=== PATIENT | female | born 1980 | race Caucasian/White ===

== ENCOUNTER 2016-08-24 20:46 | Emergency (ER) | payer MEDICAID ==
[2016-08-24 21:07] VITALS: BP 116/72
--- NOTE | 2016-08-24 21:20 | EDM.PDOC ---
ED HPI ENT - General Chief Complaint: ENT Problem Stated Complaint: TOOTH PAIN Time Seen by Provider: 08/24/16 21:02 Source: Reports: Patient History Limitations: Reports: No limitations - History of Present Illness INITIAL COMMENTS - FREE TEXT/NARRATIVE: dental pain -reports filling fell out of upper molar about one week ago, now for the past two days having increased pain. now tonight the pain is unbearable. -also has other teeth with large cavities. -she plans to go to the Dental Clinic on Friday. Symptom Onset Date: 08/22/16 Timing/Duration: Reports: Day(s): Severity: severe Quality: Reports: Sharp, Throbbing Improves with: Reports: None Worsens with: Reports: None Associated symptoms: Reports: denies other symptoms - Related Data Allergies/ADRs: Allergies Allergy/AdvReac Type Severity Reaction Status Date / Time aspirin Allergy Ringing in Verified 04/06/14 12:56 the Ears codeine Allergy Hives Verified 04/06/14 12:56 naproxen [From Naprosyn] Allergy Hives Verified 04/06/14 12:56 tramadol Allergy Headache Verified 05/21/15 10:16 Home Meds: Home Meds Omeprazole [Omeprazole] 20 mg PO DAILY 03/05/14 [History] Prazosin [Minpress] 4 mg PO BEDTIME 03/05/14 [History] clonazePAM [Clonazepam] 0.5 mg PO BID 07/30/15 [History] Ibuprofen 800 mg PO TID 11/02/15 [History] Mometasone Furoate [Nasonex] 1 spray NASBOTH DAILY 11/02/15 [History] Gabapentin [Gabapentin] 1 tab PO TID 01/06/16 [History] Baclofen [Baclofen] 08/24/16 [History] Cyclobenzaprine HCl [Cyclobenzaprine HCl] 08/24/16 [History] Venlafaxine [Venlafaxine HCl ER] 08/24/16 [History] Past Medical History - Past Health History Medical/Surgical History: Denies Medical/Surgical History Musculoskeletal History: Reports: Fracture Psychiatric History: Reports: Anxiety, Depression, PTSD Dermatologic History: Reports: Eczema - Infectious Disease History Infectious Disease History: Reports: Chicken pox - Past Surgical History Female Surgical History: Reports: Tubal ligation Social & Family History - Tobacco Use Smoking Status *Q: Current Every Day Smoker Years of Tobacco use: 26 Packs/Tins Daily: 1 - Alcohol Use Days Per Week of Alcohol Use: 0 - Recreational Drug Use Recreational Drug Use: Yes Drug Use in Last 12 Months: Yes Recreational Drug Type: Reports: Marijuana/Hashish Recreational Drug Use Frequency: Not Used In Over 2 Months - Living Situation & Occupation Living situation: Reports: with family (lives in [place] with her three children.) ED ROS ENT - Review of Systems Review Of Systems: See Below HEENT: Reports: Dental pain, Ear pain (left) Respiratory: Reports: No Symptoms Cardiovascular: Reports: No symptoms GI/Abdominal: Reports: No symptoms Skin: Reports: no symptoms ED EXAM, ENT - Physical Exam Exam: See Below Exam Limited By: Other (crying during the whole exam. sobbing.) General Appearance: alert, WD/WN, moderate distress Ears: normal external exam, normal canal, hearing grossly normal, normal TMs Nose: normal inspection, normal mucousa, no blood Mouth/Throat: Dental pain, Dental tenderness, Other (teeth; 32, 30, 13 & 14 with large cavities into the root and gum line. pain and tenderness noted. ) Head: atraumatic, normocephalic Neck: normal inspection, supple, non-tender, full range of motion Respiratory/Chest: no respiratory distress Neurological: alert, oriented, normal cognition Psychiatric: tearful Skin: Warm, Dry, Intact, Normal color, No rash Lymphatic: no adenopathy Course - Vital Signs Last Recorded V/S: Last Vital Signs Temp 37.7 C 08/24/16 21:05 Pulse 99 08/24/16 21:05 Resp 15 08/24/16 21:05 BP 116/72 08/24/16 21:05 Pulse Ox 98 08/24/16 21:05 Departure - Departure Time of Disposition: 21:45 Disposition: Home, Self-Care 01 Condition: good Clinical Impression: Dental caries extending into dentin Instructions: Dental Caries, [id number] Referrals: Ana Bellamy NP [Primary Care Provider] - Forms: ED Department Discharge Care Plan Goals: dental pain -hydrocodone 5-325mg one every 4 to6 hours as needed for acute pain -may use over the counter; tylenol, motrin, oral gel for pain -referral to [facility] for care on FridayAugust 26 discussed medications, soft diet, no hot or cold foods, and plan to be seen by Dental Clinic on Friday return to clinic or er if not improved or symptoms worsen - Problem List & Annotations (1) Dental caries extending into dentin SNOMED Code(s): 657408808 Code(s): K02.62 - DENTAL CARIES ON SMOOTH SURFACE PENETRATING INTO DENTIN Status: Acute Priority: Medium Current Visit: Yes - Assessment/Plan Plan: dental pain -hydrocodone 5-325mg one every 4 to6 hours as needed for acute pain #6 tabs -may use over the counter; tylenol, motrin, oral gel for pain -referral to [facility] for care on FridayAugust 26 discussed medications, soft diet, no hot or cold foods, and plan to be seen by Dental Clinic on Friday return to clinic or er if not improved or symptoms worsen
== END 2016-08-24 22:23 | disposition home or self-care (01) ==
LOC: JP.ED 20:46
DX: K02.9 Dental caries, unspecified (principal); F41.8 Other specified anxiety disorders; Z79.899 Other long term (current) drug therapy; F17.210 Nicotine dependence, cigarettes, uncomplicated; Z88.5 Allergy status to narcotic agent; Z88.6 Allergy status to analgesic agent
CPT/HCPCS: 99283

== ENCOUNTER 2016-09-20 13:32 | Emergency (ER) | payer MEDICAID ==
[2016-09-20 13:57] VITALS: BP 129/77
[2016-09-20] MEDS ORDERED: Ketorolac 60 MG/2 ML SDV IM ONE (14:28)
--- NOTE | 2016-09-20 15:06 | EDM.PDOC ---
[id number] Time Seen by Provider: 09/20/16 14:05 Source: Reports: Patient History Limitations: Reports: No limitations - History of Present Illness INITIAL COMMENTS - FREE TEXT/NARRATIVE: 35-year-old female with chronic dental pain has an acute exacerbation over the last 2 or 3 days. She has an appointment coming up at the dental clinic in 10 days. She is tearful, so she is "unable to eat" and now she is developing some swelling around the left angle of the jaw. Severity: moderate Location: Reports: mouth Associated symptoms: Denies: shortness of breath, cough, fever/chills, loss of appetite, nausea/vomiting - Related Data Allergies/ADRs: Allergies Allergy/AdvReac Type Severity Reaction Status Date / Time aspirin Allergy Ringing in Verified 09/20/16 14:03 the Ears codeine Allergy Hives Verified 09/20/16 14:03 naproxen [From Naprosyn] Allergy Hives Verified 09/20/16 14:03 tramadol Allergy Headache Verified 09/20/16 14:03 Home Meds: Home Meds Omeprazole [Omeprazole] 20 mg PO DAILY 03/05/14 [History] Prazosin [Minpress] 4 mg PO BEDTIME 03/05/14 [History] Ibuprofen 800 mg PO TID 11/02/15 [History] Mometasone Furoate [Nasonex] 1 spray NASBOTH DAILY 11/02/15 [History] Gabapentin [Gabapentin] 1 tab PO TID 01/06/16 [History] Baclofen [Baclofen] 10 mg PO TID 08/24/16 [History] Cyclobenzaprine HCl [Cyclobenzaprine HCl] 10 mg PO TID 08/24/16 [History] Venlafaxine [Venlafaxine HCl ER] 150 mg PO DAILY 08/24/16 [History] ALPRAZolam [Xanax] 0.5 mg PO TID 09/20/16 [History] Baclofen 10 mg PO TID 09/20/16 [History] Past Medical History - Past Health History Medical/Surgical History: Denies Medical/Surgical History Musculoskeletal History: Reports: Back pain, chronic, Fracture Psychiatric History: Reports: Anxiety, Depression, PTSD Dermatologic History: Reports: Eczema - Infectious Disease History Infectious Disease History: Reports: Chicken pox - Past Surgical History HEENT Surgical History: Reports: Other (see below) Other HEENT Surgeries/Procedures: caries Female Surgical History: Reports: Tubal ligation Social & Family History - Tobacco Use Smoking Status *Q: Current Every Day Smoker Years of Tobacco use: 20 Packs/Tins Daily: 1 - Caffeine Use Caffeine Use: Reports: Coffee, Soda - Alcohol Use Days Per Week of Alcohol Use: 0 - Recreational Drug Use Recreational Drug Use: Yes Drug Use in Last 12 Months: Yes Recreational Drug Type: Reports: Marijuana/Hashish Recreational Drug Use Frequency: Daily - Living Situation & Occupation Living situation: Reports: with family (lives in [place] with her three children.) ED ROS ENT - Review of Systems Review Of Systems: See Below Constitutional: Denies: fever, chills HEENT: Reports: Dental pain Respiratory: Denies: Shortness of Breath Cardiovascular: Denies: Chest pain GI/Abdominal: Denies: Abdominal pain, Nausea, Vomiting ED EXAM, ENT - Physical Exam Exam: See Below Exam Limited By: No limitations General Appearance: alert, anxious, mild distress, other (Patient is tearful and obviously very uncomfortable) Mouth/Throat: Other (Patient has widespread very advanced dental decay, some discoloration of the gingiva around the left maxillary molars and also the lower mandibular incisors and canines) Course - Vital Signs Last Recorded V/S: Last Vital Signs Temp 99.5 F 09/20/16 14:08 Pulse 124 H 09/20/16 14:08 Resp 15 09/20/16 14:08 BP 129/77 09/20/16 14:08 Pulse Ox 96 09/20/16 14:08 - Orders/Labs/Meds Meds: Medications Discontinued Medications Generic Name Dose Route Start Last Admin Trade Name Yash PRN Reason Stop Dose Admin Ketorolac Tromethamine 60 mg 09/20/16 14:28 09/20/16 14:35 Toradol IM 09/20/16 14:29 60 mg ONETIME ONE Administration - Re-Assessments/Exams Free Text/Narrative Re-Assessment/Exam: 09/20/16 14:59 Patient was given an injection of Toradol and observed for 30 minutes, she had no reaction and it did provide some relief. She was given 40 penicillin VK to take at least 3 times a day until her dental recheck, 10 additional ketorolac doses and 10 hydrocodone to take through the weekend. Departure - Departure Time of Disposition: 15:19 Disposition: Home, Self-Care 01 Condition: good Clinical Impression: Dental caries extending into dentin, Pain in a tooth or teeth, Dental abscess Instructions: Dental Abscess, [id number], Dental Caries, [id number] Referrals: Ana Bellamy NP [Primary Care Provider] - Forms: ED Department Discharge Care Plan Goals: Take medications as prescribed. If not improving by early next week consider calling the dental clinic or return to ER to set up a referral.
== END 2016-09-20 15:13 | disposition home or self-care (01) ==
LOC: JP.ED 13:32
DX: K02.62 Dental caries on smooth surface penetrating into dentin (principal); K04.7 Periapical abscess without sinus; F17.210 Nicotine dependence, cigarettes, uncomplicated; G89.29 Other chronic pain; M54.9 Dorsalgia, unspecified; F43.10 Post-traumatic stress disorder, unspecified; Z79.899 Other long term (current) drug therapy; Z88.6 Allergy status to analgesic agent; Z88.8 Allergy status to other drugs, medicaments and biological substances
CPT/HCPCS: 96372; 99283; J1885

== ENCOUNTER 2016-10-08 18:03 | Emergency (ER) | payer MEDICAID ==
[2016-10-08 18:28] VITALS: BP 144/99
[2016-10-08] MEDS ORDERED: Bupivacaine 0.5%/EPINEPHrine 1:200,000 1.8 ML Cartridge INJECT ONE (19:11)
--- NOTE | 2016-10-08 19:16 | EDM.PDOC ---
ED HPI GENERAL MEDICAL PROBLEM - General Chief Complaint: ENT Problem Stated Complaint: LEFT JAW PAIN Time Seen by Provider: 10/08/16 18:55 Source of Information: Reports: Patient, RN Notes Reviewed History Limitations: Reports: No Limitations - History of Present Illness INITIAL COMMENTS - FREE TEXT/NARRATIVE: Drove self care Chief complaint: Left upper dental pain HPI: 36-year-old female who is on medical assistance, has been seen by her dentist and referred to a dental surgeon because of a bad cavity/dental caries left upper molar that needs to extraction. She has a dental surgical appointment for November. She has been taking hydrocodone and ibuprofen 800 mg for the pain and also has been prescribed clindamycin which apparently she's been prescribed up until the appointment in November. She's been unable to get renewals on hydrocodone by her dentist or her primary care provider. She denies any history of addiction drug use drug abuse or drug dependency She has been having dental pain for over a month Tooth/Teeth Pain Score (Numeric/FACES): 10 - Related Data Allergies Allergy/AdvReac Type Severity Reaction Status Date / Time aspirin Allergy Ringing in Verified 09/20/16 14:03 the Ears codeine Allergy Hives Verified 09/20/16 14:03 naproxen [From Naprosyn] Allergy Hives Verified 09/20/16 14:03 tramadol Allergy Headache Verified 09/20/16 14:03 Home Meds: Home Meds Omeprazole [Omeprazole] 20 mg PO DAILY 03/05/14 [History] Prazosin [Minpress] 4 mg PO BEDTIME 03/05/14 [History] Ibuprofen 800 mg PO TID 11/02/15 [History] Mometasone Furoate [Nasonex] 1 spray NASBOTH DAILY 11/02/15 [History] Gabapentin [Gabapentin] 1 tab PO TID 01/06/16 [History] Baclofen [Baclofen] 10 mg PO TID 08/24/16 [History] Cyclobenzaprine HCl [Cyclobenzaprine HCl] 10 mg PO TID 08/24/16 [History] Venlafaxine [Venlafaxine HCl ER] 150 mg PO DAILY 08/24/16 [History] ALPRAZolam [Xanax] 0.5 mg PO TID 09/20/16 [History] Baclofen 10 mg PO TID 09/20/16 [History] Hydrocodone/Acetaminophen [Hydrocodon-Acetaminophen 5-325] 2 each PO Q4HR PRN # 20 tablet 10/08/16 [Rx] Past Medical History - Past Health History Medical/Surgical History: Denies Medical/Surgical History Musculoskeletal History: Reports: Back Pain, Chronic, Fracture Psychiatric History: Reports: Anxiety, Depression, PTSD Dermatologic History: Reports: Eczema - Infectious Disease History Infectious Disease History: Reports: Chicken Pox - Past Surgical History HEENT Surgical History: Reports: Other (See Below) Other HEENT Surgeries/Procedures: decayed teeth Female Surgical History: Reports: Tubal Ligation Social & Family History - Tobacco Use Smoking Status *Q: Heavy Tobacco Smoker Years of Tobacco use: 20 Packs/Tins Daily: 1 - Caffeine Use Caffeine Use: Reports: Coffee, Soda - Alcohol Use Days Per Week of Alcohol Use: 0 - Recreational Drug Use Recreational Drug Use: Yes Drug Use in Last 12 Months: Yes Recreational Drug Type: Reports: Marijuana/Hashish Recreational Drug Use Frequency: Daily - Living Situation & Occupation Living situation: Reports: with Family ED ROS ENT - Review of Systems Review Of Systems: ROS reveals no pertinent complaints other than HPI. HEENT: Reports: Dental Pain ED EXAM, ENT - Physical Exam Exam: See Below Exam Limited By: No Limitations General Appearance: Anxious, Moderate Distress, Other (Vital signs normal apart from elevated systolic blood pressure, very tearful anxious and uncomfortable) Eye Exam: Bilateral Eye: Normal Inspection Nose: Normal Inspection Mouth/Throat: Dental Tenderness, Gum Swelling (Around the dental infection), Other (Large cavity of the entire left upper molar that is painful for her) Head: Atraumatic Neck: Supple. No: Lymphadenopathy (R), Lymphadenopathy (L) Respiratory/Chest: No Respiratory Distress Cardiovascular: Regular Rate, Rhythm Neurological: Alert, No Motor/Sensory Deficits Psychiatric: Anxious, Tearful Skin: Warm, Dry Lymphatic: No Adenopathy ED ENT PROCEDURES - Additional/Other Procedure(s) Other (Free Text) Procedure(s): Local dental block left upper alveolar ridge Bupivacaine 0.5% with epinephrine Well tolerated by patient with good relief Course - Vital Signs Last Recorded V/S: Last Vital Signs Temp 37.1 C 10/08/16 18:28 Pulse 73 10/08/16 18:28 Resp 16 10/08/16 18:28 BP 144/99 H 10/08/16 18:28 Pulse Ox 96 10/08/16 18:28 - Orders/Labs/Meds Meds: Medications Discontinued Medications Generic Name Dose Route Start Last Admin Trade Name Yash PRN Reason Stop Dose Admin Bupivacaine HCl/Epinephrine Bitart 1.8 ml 10/08/16 19:11 10/08/16 19:22 Marcaine 0.5%/Epinephrine 1:200,000 INJECT 10/08/16 19:12 1.8 ml ONETIME ONE Administration - Re-Assessments/Exams Free Text/Narrative Re-Assessment/Exam: 10/08/16 19:14 36-year-old female with acute dental pain, due to caries Accepted dental block Prescriptions as below Departure - Departure Time of Disposition: 19:26 Disposition: Home, Self-Care 01 Condition: good ( I) Clinical Impression: Dental caries - Discharge Information Prescriptions: Hydrocodone/Acetaminophen [Hydrocodon-Acetaminophen 5-325] 2 each PO Q4HR PRN # 20 tablet PRN Reason: Moderate to severe pain Instructions: Dental Caries Referrals: Ana Bellamy NP [Primary Care Provider] - Forms: ED Department Discharge
== END 2016-10-08 19:37 | disposition home or self-care (01) ==
LOC: JP.ED 18:03
DX: K02.9 Dental caries, unspecified (principal); F41.9 Anxiety disorder, unspecified; F32.9 Major depressive disorder, single episode, unspecified; Z98.51 Tubal ligation status; Z79.899 Other long term (current) drug therapy; Z88.5 Allergy status to narcotic agent; Z88.8 Allergy status to other drugs, medicaments and biological substances
CPT/HCPCS: 64450; 99283-25

== ENCOUNTER 2016-10-14 12:46 | Emergency (ER) | payer MEDICAID ==
[2016-10-14 13:03] VITALS: BP 118/86
[2016-10-14] MEDS ORDERED: Bupivacaine 0.25% 10 ML SDV INJECT ONE (13:47)
[2016-10-14] MEDS ORDERED: HYDROmorphone 1 MG/ML Syringe IM ONE (14:05)
--- NOTE | 2016-10-14 14:08 | EDM.PDOC ---
ED HPI GENERAL MEDICAL PROBLEM - General Chief Complaint: ENT Problem Stated Complaint: JAW PAIN Time Seen by Provider: 10/14/16 13:30 Source of Information: Reports: Patient History Limitations: Reports: No Limitations - History of Present Illness INITIAL COMMENTS - FREE TEXT/NARRATIVE: Yelena is a 36 year old female who presents to the ED today with c/o worsening left upper tooth/jaw pain. Patient has been seen here on the of this Month as well as primary dentistry earlier in the month for this problem. Patient is scheduled for tooth extraction with oral surgeon in November. Patient is currently taking Clindamycin for infection and took her last [place] for pain last night. Patient reports she took ibuprofen earlier to day for her pain which really isn't helping. Patient report she cannot open her mouth as much as she normally can today. Patient denies any fever/nausea/vomiting. Onset: Other (ongoing for the last 6 weeks. ) Duration: Getting Worse Left Face Pain Score (Numeric/FACES): 10 - Related Data Allergies Allergy/AdvReac Type Severity Reaction Status Date / Time aspirin Allergy Ringing in Verified 09/20/16 14:03 the Ears codeine Allergy Hives Verified 09/20/16 14:03 naproxen [From Naprosyn] Allergy Hives Verified 09/20/16 14:03 tramadol Allergy Headache Verified 09/20/16 14:03 Home Meds: Home Meds Omeprazole [Omeprazole] 20 mg PO DAILY 03/05/14 [History] Prazosin [Minpress] 4 mg PO BEDTIME 03/05/14 [History] Ibuprofen 800 mg PO TID 11/02/15 [History] Mometasone Furoate [Nasonex] 1 spray NASBOTH DAILY 11/02/15 [History] Gabapentin [Gabapentin] 1 tab PO TID 01/06/16 [History] Baclofen [Baclofen] 10 mg PO TID 08/24/16 [History] Cyclobenzaprine HCl [Cyclobenzaprine HCl] 10 mg PO TID 08/24/16 [History] Venlafaxine [Venlafaxine HCl ER] 150 mg PO DAILY 08/24/16 [History] ALPRAZolam [Xanax] 0.5 mg PO TID 09/20/16 [History] Baclofen 10 mg PO TID 09/20/16 [History] Hydrocodone/Acetaminophen [Hydrocodon-Acetaminophen 5-325] 2 each PO Q4HR PRN # 20 tablet 10/08/16 [Rx] Past Medical History - Past Health History Medical/Surgical History: Denies Medical/Surgical History Musculoskeletal History: Reports: Back Pain, Chronic, Fracture Psychiatric History: Reports: Anxiety, Depression, PTSD Dermatologic History: Reports: Eczema - Infectious Disease History Infectious Disease History: Reports: Chicken Pox - Past Surgical History Head Surgeries/Procedures: Reports: None HEENT Surgical History: Reports: Other (See Below) Other HEENT Surgeries/Procedures: decayed teeth Female Surgical History: Reports: Tubal Ligation Musculoskeletal Surgical History: Reports: None Dermatological Surgical History: Reports: None Social & Family History - Family History Family Medical History: Noncontributory - Tobacco Use Smoking Status *Q: Current Every Day Smoker Years of Tobacco use: 26 Packs/Tins Daily: 0.5 Used Tobacco, but Quit: No Second Hand Smoke Exposure: No - Caffeine Use Caffeine Use: Reports: Soda - Alcohol Use Days Per Week of Alcohol Use: 0 - Recreational Drug Use Recreational Drug Use: Yes Drug Use in Last 12 Months: Yes Recreational Drug Type: Reports: Marijuana/Hashish Recreational Drug Use Frequency: Weekly - Living Situation & Occupation Living situation: Reports: with Family ED ROS ENT - Review of Systems Review Of Systems: ROS reveals no pertinent complaints other than HPI. ED EXAM, ENT - Physical Exam Exam: See Below Exam Limited By: No Limitations General Appearance: Alert, WD/WN, Anxious, Moderate Distress Ears: Normal External Exam, Normal TMs Mouth/Throat: Dental Pain, Dental Tenderness, Other (No findings to suggest jeremiah's angina). No: Dental Abcess, Dry Mucous Membrane, Throat Swelling, Tongue Swelling, Tonsillar Erythema, Trismus Head: Atraumatic Neck: Normal Inspection, Supple, Non-Tender Respiratory/Chest: No Respiratory Distress, Lungs Clear Cardiovascular: Normal Peripheral Pulses, Regular Rate, Rhythm, No Murmur Neurological: Alert, Oriented Psychiatric: Anxious, Tearful, Other (upset, crying) Lymphatic: No Adenopathy Course - Vital Signs Text/Narrative:: Yelena is a 36 year old female with ongoing dental issues who presents to the ED today for the second time this week with c/o dental pain. Please refer to HPI and focused exam. Patient has no evidence of abscess or worsening infection. She has no evidence of clinical trismus. Patient is crying on arrival, voicing frustration that we here in the ED cannot fix her dental problem. I did inform patient that she has had several narcotic prescriptions filled in the last 14 days. 2 of these Rx's were by her dentist, the most recent was on the here in the ED. If patient took medication as prescribed, she should have at least 2 pills of [place] left and she does not. Patient is upset, reporting that "you all think I'm a drug seeker". I explained to patient that as a provider I am concerned about her narcotic use and would not be willing to refill her narcotics here today. I did offer patient a dental block which she consented to , 0.25% Marcain, 3 ml was injected around upper left back molar. Patient reported good relief from this. Patient was given 1 mg of IM dilaudid here in the ED and she plans to go home and sleep. Patient can continue her Clindamycin as prescribed. She can alternate Tylenol and Ibuprofen for her pain , I would like her to call her dentist first thing in the morning to discuss her ongoing issues. Patient is agreeable to plan of care and was discharged in stable condition with her brother in law. Last Recorded V/S: Last Vital Signs Temp 37.3 C 10/14/16 13:01 Pulse 109 H 10/14/16 13:01 Resp 20 10/14/16 13:01 BP 118/86 10/14/16 13:01 Pulse Ox 98 10/14/16 13:01 - Orders/Labs/Meds Meds: Medications Discontinued Medications Generic Name Dose Route Start Last Admin Trade Name Yash PRN Reason Stop Dose Admin Bupivacaine HCl 10 ml 10/14/16 13:47 10/14/16 14:15 Sensorcaine-Mpf 0.25% INJECT 10/14/16 13:48 10 ml ONETIME ONE Administration Hydromorphone HCl 1 mg 10/14/16 14:05 10/14/16 14:27 Dilaudid IM 10/14/16 14:06 1 mg ONETIME ONE Administration Departure - Departure Time of Disposition: 14:30 Disposition: Home, Self-Care 01 Condition: fair Clinical Impression: Dental infection, Pain, dental - Discharge Information Instructions: Dental Abscess, [id number] Referrals: Ana Bellamy NP [Primary Care Provider] - Forms: ED Department Discharge Additional Instructions: Breanna, please call your dentist first thing tomorrow morning. Take your clindamycin as prescribed. Alternate Ibuprofen/Tylenol for pain, you can also use warm packs/ice packs to left cheek.
== END 2016-10-14 14:37 | disposition home or self-care (01) ==
LOC: JP.ED 12:46
DX: K04.7 Periapical abscess without sinus (principal); K08.89 Other specified disorders of teeth and supporting structures; F41.9 Anxiety disorder, unspecified; F32.9 Major depressive disorder, single episode, unspecified; F17.210 Nicotine dependence, cigarettes, uncomplicated; Z98.51 Tubal ligation status; Z79.899 Other long term (current) drug therapy; Z88.5 Allergy status to narcotic agent; Z88.8 Allergy status to other drugs, medicaments and biological substances
CPT/HCPCS: 64400; 96372; 99283; J1170

== ENCOUNTER 2016-11-18 19:16 | Emergency (ER) | payer MEDICAID ==
--- NOTE | 2016-11-18 21:27 | EDM.PDOC ---
[id number] Complaint: KNEE HURTS TWISTED Time Seen by Provider: 11/18/16 21:05 Source of Information: Reports: Patient History Limitations: Reports: No Limitations - History of Present Illness INITIAL COMMENTS - FREE TEXT/NARRATIVE: 36-year-old female with chronic left knee problems twisted her knee on Friday, 4 days ago sustaining some pain, today she feels she turned wrong and now has even increased pain. She is having trouble bearing weight and is wearing her knee brace. No significant swelling. No direct trauma such as fall. Onset: Other (4 days ago) Location: Reports: Lower Extremity, Left Worsens with: Reports: Other (Weight-bearing and movement) Associated Symptoms: Reports: No Other Symptoms Left Knee Pain Score (Numeric/FACES): 7 - Related Data Allergies Allergy/AdvReac Type Severity Reaction Status Date / Time aspirin Allergy Ringing in Verified 09/20/16 14:03 the Ears codeine Allergy Hives Verified 09/20/16 14:03 naproxen [From Naprosyn] Allergy Hives Verified 09/20/16 14:03 tramadol Allergy Headache Verified 09/20/16 14:03 Home Meds: Home Meds Omeprazole [Omeprazole] 20 mg PO DAILY 03/05/14 [History] Prazosin [Minpress] 4 mg PO BEDTIME 03/05/14 [History] Ibuprofen 800 mg PO TID 11/02/15 [History] Mometasone Furoate [Nasonex] 1 spray NASBOTH DAILY 11/02/15 [History] Gabapentin [Gabapentin] 1 tab PO TID 01/06/16 [History] Baclofen [Baclofen] 10 mg PO TID 08/24/16 [History] Cyclobenzaprine HCl [Cyclobenzaprine HCl] 10 mg PO TID 08/24/16 [History] Venlafaxine [Venlafaxine HCl ER] 150 mg PO DAILY 08/24/16 [History] ALPRAZolam [Xanax] 0.5 mg PO TID 09/20/16 [History] Baclofen 10 mg PO TID 09/20/16 [History] Hydrocodone/Acetaminophen [Hydrocodon-Acetaminophen 5-325] 2 each PO Q4HR PRN # 20 tablet 10/08/16 [Rx] Past Medical History - Past Health History Medical/Surgical History: Denies Medical/Surgical History Musculoskeletal History: Reports: Back Pain, Chronic, Fracture Psychiatric History: Reports: Anxiety, Depression, PTSD Dermatologic History: Reports: Eczema - Infectious Disease History Infectious Disease History: Reports: Chicken Pox - Past Surgical History Head Surgeries/Procedures: Reports: None HEENT Surgical History: Reports: Other (See Below) Other HEENT Surgeries/Procedures: decayed teeth Female Surgical History: Reports: Tubal Ligation Musculoskeletal Surgical History: Reports: None Dermatological Surgical History: Reports: None Social & Family History - Family History Family Medical History: Noncontributory - Tobacco Use Smoking Status *Q: Current Every Day Smoker Years of Tobacco use: 26 Packs/Tins Daily: 0.5 Used Tobacco, but Quit: No Second Hand Smoke Exposure: No - Caffeine Use Caffeine Use: Reports: Soda - Alcohol Use Days Per Week of Alcohol Use: 0 - Recreational Drug Use Recreational Drug Use: Yes Drug Use in Last 12 Months: Yes Recreational Drug Type: Reports: Marijuana/Hashish Recreational Drug Use Frequency: Weekly - Living Situation & Occupation Living situation: Reports: with Family Review of Systems - Review of Systems Review Of Systems: See Below Constitutional: Denies: Fever Respiratory: Reports: No Symptoms Cardiovascular: Reports: No Symptoms Skin: Reports: No Symptoms Neurological: Reports: No Symptoms Psychiatric: Reports: No Symptoms ED EXAM, GENERAL - Physical Exam Exam: See Below Exam Limited By: No Limitations General Appearance: Alert, No Apparent Distress Respiratory/Chest: No Respiratory Distress, Lungs Clear Extremities: Other (Remainder of exam is limited to the lower extremities. The knees appear symmetric. There is no significant effusion of the left knee. Patella is nontender, she does have some tenderness to the medial joint line and some tenderness with stressing the medial collateral ligament. There is no laxity.) Course - Orders/Labs/Meds Orders: Active Orders 24 hr Category Date Time Status Knee 3V Lt [CR] Stat Exams 11/18/16 21:00 Taken - Re-Assessments/Exams Free Text/Narrative Re-Assessment/Exam: 11/18/16 21:27 An x-ray of the left knee was obtained. 11/18/16 22:40 X-ray showed no abnormalities. Patient was offered a four-inch Justen wrap, encouraged to continue wearing her brace for support and crutches if there is pain with weightbearing. She will be referred to Dr. Leonides Espinoza of orthopedics on . Departure - Departure Time of Disposition: 22:50 Disposition: Home, Self-Care 01 Condition: Good Clinical Impression: Strain of left knee Qualifiers: Encounter type: initial encounter Qualified Code(s): S86.912A - Strain of unspecified muscle(s) and tendon(s) at lower leg level, left leg, initial encounter - Discharge Information Instructions: Muscle Strain Referrals: Ana Bellamy NP [Primary Care Provider] - Forms: ED Department Discharge Care Plan Goals: Wrap needed for comfort, use brace if helpful and crutches as needed. Consider calling on Friday for an appointment to see orthopedics on if not improving satisfactorily. Ibuprofen or Tylenol should help for pain if needed. - My Orders Last 24 Hours: My Active Orders 11/18/16 21:00 Knee 3V Lt [CR] Stat - Assessment/Plan Last 24 Hours: My Active Orders 11/18/16 21:00 Knee 3V Lt [CR] Stat
--- NOTE | 2016-11-20 09:13 | CR ---
No evidence for fracture. Effusion or synovitis left knee.
== END 2016-11-18 22:51 | disposition home or self-care (01) ==
LOC: JP.ED 19:16
DX: S86.912A Strain of unspecified muscle(s) and tendon(s) at lower leg level, left leg, initial encounter (principal); F17.210 Nicotine dependence, cigarettes, uncomplicated; F32.9 Major depressive disorder, single episode, unspecified; F41.9 Anxiety disorder, unspecified; F43.10 Post-traumatic stress disorder, unspecified; Z98.51 Tubal ligation status; Z79.899 Other long term (current) drug therapy; Z88.6 Allergy status to analgesic agent; Z88.5 Allergy status to narcotic agent; Z88.8 Allergy status to other drugs, medicaments and biological substances; X50.1XXA Overexertion from prolonged static or awkward postures, initial encounter
CPT/HCPCS: 73562-26-LT; 73562-LT; 99284

== ENCOUNTER 2016-11-24 20:26 | Emergency (ER) | payer MEDICAID ==
[2016-11-24] MEDS ORDERED: Ondansetron 4 MG Tab.DIS PO ONE (21:31)
[2016-11-24] MEDS ORDERED: HYDROmorphone 1 MG/ML Syringe IM ONE (21:32)
--- NOTE | 2016-11-24 21:36 | EDM.PDOC ---
ED HPI GENERAL MEDICAL PROBLEM - General Chief Complaint: ENT Problem Stated Complaint: TEETH PULLED AND EXTREME PAIN Time Seen by Provider: 11/24/16 21:25 Source of Information: Reports: Patient History Limitations: Reports: No Limitations - History of Present Illness INITIAL COMMENTS - FREE TEXT/NARRATIVE: Patient presents with significant pain status post dental extraction of 4 teeth (11/21/16) per [facility]. [phone]. She reports she has run out of her hydrocodone 7.5 mg tablets (#12). Onset: Gradual Onset Date: 11/21/16 Location: Reports: Other (Dental pain) Quality: Reports: Ache, Stabbing, Throbbing Severity: Severe Improves with: Reports: None Worsens with: Reports: Cold Therapy Associated Symptoms: Reports: Headaches. 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 ) Face Pain Score (Numeric/FACES): 10 - Related Data Allergies Allergy/AdvReac Type Severity Reaction Status Date / Time aspirin Allergy Ringing in Verified 09/20/16 14:03 the Ears codeine Allergy Hives Verified 09/20/16 14:03 naproxen [From Naprosyn] Allergy Hives Verified 09/20/16 14:03 tramadol Allergy Headache Verified 09/20/16 14:03 Home Meds: Home Meds Omeprazole [Omeprazole] 20 mg PO DAILY 03/05/14 [History] Ibuprofen 800 mg PO TID PRN 11/02/15 [History] Mometasone Furoate [Nasonex] 1 spray NASBOTH DAILY 11/02/15 [History] Gabapentin [Gabapentin] 1 tab PO DAILY 01/06/16 [History] Baclofen [Baclofen] 10 mg PO TIDMEALS 08/24/16 [History] Cyclobenzaprine HCl [Cyclobenzaprine HCl] 10 mg PO TID 08/24/16 [History] Venlafaxine [Venlafaxine HCl ER] 150 mg PO DAILY 08/24/16 [History] ALPRAZolam [Xanax] 0.5 mg PO TID PRN 09/20/16 [History] Albuterol [Ventolin HFA] 1 puff INH Q4H PRN 11/22/16 [History] Gabapentin [Neurontin] 600 mg PO BEDTIME 11/22/16 [History] Prazosin HCl [Prazosin] 4 mg PO BEDTIME 11/22/16 [History] Amoxicillin [Take Home: Amoxicillin 875 MG Tab, 2 Tab Pack] 1 tab PO BID [History] Hydrocodone/Acetaminophen [Hydrocodon-Acetaminoph 7.5-325] 1 tab PO Q4HR [History] Past Medical History - Past Health History Medical/Surgical History: Denies Medical/Surgical History HEENT History: Reports: Allergic Rhinitis Respiratory History: Reports: Bronchitis, Recurrent 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: Reports: GERD 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: Musculoskeletal History: Reports: Back Pain, Chronic, Fracture Neurological History: Reports: Brain Injury Psychiatric History: Reports: Addiction, Anxiety, Bipolar, Depression, Panic Attack, PTSD Dermatologic History: Reports: Eczema - Infectious Disease History Infectious Disease History: Reports: Chicken Pox - Past Surgical History HEENT Surgical History: Reports: Other (See Below) Other HEENT Surgeries/Procedures: decayed teeth Female Surgical History: Reports: Tubal Ligation Musculoskeletal Surgical History: Reports: Arthroscopic Knee Dermatological Surgical History: Reports: None Social & Family History - Family History Family Medical History: Noncontributory - Tobacco Use Smoking Status *Q: Current Every Day Smoker Years of Tobacco use: 26 Packs/Tins Daily: 0.5 Used Tobacco, but Quit: No Second Hand Smoke Exposure: No - Caffeine Use Caffeine Use: Reports: Soda - Alcohol Use Days Per Week of Alcohol Use: 0 - Recreational Drug Use Recreational Drug Use: Yes Drug Use in Last 12 Months: Yes Recreational Drug Type: Reports: Marijuana/Hashish Recreational Drug Use Frequency: Weekly - Living Situation & Occupation Living situation: Reports: with Family ED ROS ENT - Review of Systems Review Of Systems: See Below Constitutional: Denies: Fever, Chills, Malaise HEENT: Reports: Dental Pain. Denies: Ear Pain, Eye Pain, Nose Pain, Sinus Problem, Throat Pain, Vertigo, Vision Change Respiratory: Denies: Shortness of Breath, Wheezing, Cough, Sputum Cardiovascular: Denies: Chest Pain, Blood Pressure Problem, Dyspnea on Exertion , Edema, Lightheadedness, Palpitations, Syncope Endocrine: Reports: No Symptoms GI/Abdominal: Reports: No Symptoms : Reports: No Symptoms Musculoskeletal: Reports: No Symptoms Skin: Reports: Bruising, Other (edema to right lower jaw, left upper jaw) Neurological: Reports: Headache. Denies: Confusion, Syncope, Difficulty Walking , Gait Disturbance Psychiatric: Reports: No Symptoms Hematologic/Lymphatic: Reports: No Symptoms Immunologic: Reports: No Symptoms ED EXAM, ENT - Physical Exam Exam: See Below Text/Narrative:: Yelena presents today status post dental extraction of 4 teeth 3 days ago. She was given hydrocodone, however is out of the pain medication. Exam Limited By: No Limitations General Appearance: Alert, WD/WN, No Apparent Distress Eye Exam: Bilateral Eye: EOMI, PERRL Ears: Normal External Exam, Normal Canal, Hearing Grossly Normal, Normal TMs Nose: Normal Inspection, Normal Mucousa, No Blood Mouth/Throat: Normal Lips, Dental Pain, Other (Edema to right lower jaw and left upper jaw with ecchymosis.) Head: Atraumatic, Normocephalic, Facial Swelling Neck: Normal Inspection, Supple, Non-Tender, Full Range of Motion. No: Lymphadenopathy (R), Lymphadenopathy (L) Respiratory/Chest: No Respiratory Distress, Lungs Clear, Normal Breath Sounds, No Accessory Muscle Use, Chest Non-Tender Cardiovascular: Normal Peripheral Pulses, Regular Rate, Rhythm, No Edema, No Murmur, No Rub Back: Normal Inspection, Full Range of Motion. No: CVA Tenderness (R), CVA Tenderness (L) Extremities: Normal Inspection, Normal Range of Motion, Non-Tender, No Pedal Edema, Normal Capillary Refill Neurological: Alert, Oriented, CN II-XII Intact, Normal Cognition, Normal Gait, No Motor/Sensory Deficits Psychiatric: Normal Affect, Normal Mood Skin: Warm, Dry, Intact Lymphatic: No Adenopathy Course - Vital Signs Last Recorded V/S: Last Vital Signs Temp 37.4 C 11/24/16 20:49 Pulse 93 11/24/16 20:49 Resp 21 H 11/24/16 20:49 BP 133/92 H 11/24/16 20:49 Pulse Ox 94 L 11/24/16 20:49 - Orders/Labs/Meds Meds: Medications Discontinued Medications Generic Name Dose Route Start Last Admin Trade Name Freq PRN Reason Stop Dose Admin Hydromorphone HCl 1 mg 11/24/16 21:32 11/24/16 21:38 Dilaudid IM 11/24/16 21:33 1 mg ONETIME ONE Administration Ondansetron HCl 4 mg 11/24/16 21:31 11/24/16 21:38 Zofran Odt PO 11/24/16 21:32 4 mg ONETIME ONE Administration Departure - Departure Time of Disposition: 21:56 Disposition: Home, Self-Care 01 Condition: Fair Clinical Impression: Pain, dental, S/P tooth extraction - Discharge Information Instructions: Dental Extraction, Care After, [id number] Referrals: Ana Bellamy NP [Primary Care Provider] - Forms: ED Department Discharge Additional Instructions: You continue to have significant pain status post dental extraction of four teeth. You were provided [place] 5/325 mg tablets #12 to take as directed. You will not be provided any additional opiate medication from the emergency room You were provided a dental referral to the clinic to be seen on Friday or their earliest convenience. Follow up as directed due to your significant pain. Continue use of ibuprofen or naproxen for pain, ice, rest. Return for worsening, issues or concerns. - Assessment/Plan Assessment:: Dental pain status post dental extraction of four teeth. Plan: She was provided Dilaudid 1mg IM in ER, and instymed for norco 5/325mg tablet # 12 as well as referral to dental. She was advised that she will not be provided any additional opiate medication from the emergency room Follow up as directed due to your significant pain. Continue use of ibuprofen or naproxen for pain, ice, rest. Return for worsening, issues or concerns.
[2016-11-24 22:20] VITALS: BP 137/95
== END 2016-11-24 22:22 | disposition home or self-care (01) ==
LOC: JP.ED 20:26
DX: G89.18 Other acute postprocedural pain (principal); K08.89 Other specified disorders of teeth and supporting structures; K21.9 Gastro-esophageal reflux disease without esophagitis; F31.9 Bipolar disorder, unspecified; F17.210 Nicotine dependence, cigarettes, uncomplicated; Z88.8 Allergy status to other drugs, medicaments and biological substances; Z88.5 Allergy status to narcotic agent; Z79.899 Other long term (current) drug therapy; Z98.890 Other specified postprocedural states
CPT/HCPCS: 96372; 99283; A9270; J1170

== ENCOUNTER 2016-12-07 16:55 | Emergency (ER) | payer MEDICAID ==
[2016-12-07] MEDS ORDERED: HYDROmorphone 1 MG/ML Syringe IM ONE (17:09)
[2016-12-07 17:12] VITALS: BP 151/92
[2016-12-07] MEDS ORDERED: ALPRAZolam 0.5 MG Tab PO ONE (17:47)
[2016-12-07] MEDS ORDERED: HYDROmorphone 0.5 MG/0.5 ML Syringe IM ONE (17:51)
--- NOTE | 2016-12-07 18:02 | EDM.PDOC ---
ED HPI GENERAL MEDICAL PROBLEM - General Chief Complaint: Lower Extremity Injury/Pain Stated Complaint: twisted knee Time Seen by Provider: 12/07/16 17:05 Source of Information: Reports: Patient History Limitations: Reports: No Limitations - History of Present Illness INITIAL COMMENTS - FREE TEXT/NARRATIVE: History of present illness: [36-year-old female presenting here a very emotionally distraught and crying and complaining of 10 out of 10 left knee pain. She is scheduled to undergo an ACL repair with Dr. Leonides Espinoza on 25 December. She apparently tore this about 3 years ago and has been living with it but To the point where she ended up seeing Dr. Espinoza and a decision was made to repair it. She has a brace for this knee but apparently this morning at about 8:00 she had her go to the bathroom and her bedroom is in the basement of this house and she has to go up the stairs to use the restroom. When she got to the top of the stairs she twisted her knee and states that she feels it may have popped out of joint and then to reduce this dislocation or subluxation she had to step hard down on her leg and foot to get it back in. Since that time she is been experiencing severe pain. She's been using Tylenol and Advil without relief and finally her significant other or crystalanc brought her into the emergency room for pain treatment. I reviewed her past visits to the emergency department and her use of pain medications has become an issue and a concern. She has not been through treatment for any addictions or alcoholism. She states that she is not under any pain contract. She also states that she doesn't like to take pain pills because it interferes with her ability to interact with her children.] Review of systems: As per history of present illness and below otherwise all systems reviewed and negative. Past medical history: As per history of present illness and as reviewed below otherwise noncontributory. Surgical history: As per history of present illness and as reviewed below otherwise noncontributory. Social history: No reported history of drug or alcohol abuse. Family history: As per history of present illness and as reviewed below otherwise noncontributory. Physical exam: Gen.: She is crying and distraught and sobbing so much so that it's hard to understand her when she speaks. HEENT: Atraumatic, normocephalic, Lungs: Clear to auscultation Heart: S1S2, regular Abdomen: Soft, nondistended, nontender. Pelvis: Stable nontender. 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: Deferred. Rectal: Deferred. Extremities: Examination of the left knee does not reveal any deformities erythema warmth or effusions. I wanted to try to examine the knee further but she absolutely refused to have me do anything other than touch her knee. Neuro: Awake, alert, oriented. Exam nonfocal. Diagnostics: [] Therapeutics: [We have given her 1 mg of Dilaudid. We've also ordered 0.5 mg of Xanax and I also ordered additional 0.5 of Dilaudid. Hopefully with these medical interventions she will be able to leave the emergency department and follow-up with Dr. Espinoza for her surgery.] Impression: [Exacerbation of chronic left knee pain] Plan: [I'm providing her with 12 [place] 5/325 one every 3-4 hours. She is to use her brace when she is up walking about. And once again she will be following up for her ACL repair on December 25.] Definitive disposition and diagnosis as appropriate pending reevaluation and review of above. - Related Data Allergies Allergy/AdvReac Type Severity Reaction Status Date / Time codeine Allergy Hives Verified 12/07/16 17:01 naproxen [From Naprosyn] Allergy Hives Verified 12/07/16 17:01 aspirin AdvReac Ringing in Verified 12/07/16 17:01 the Ears tramadol AdvReac Headache Verified 12/07/16 17:01 Home Meds: Home Meds Omeprazole [Omeprazole] 20 mg PO DAILY 03/05/14 [History] Ibuprofen 800 mg PO TID PRN 11/02/15 [History] Mometasone Furoate [Nasonex] 1 spray NASBOTH DAILY 11/02/15 [History] Gabapentin [Gabapentin] 1 tab PO DAILY 01/06/16 [History] Cyclobenzaprine HCl [Cyclobenzaprine HCl] 10 mg PO TID 08/24/16 [History] Venlafaxine [Venlafaxine HCl ER] 150 mg PO DAILY 08/24/16 [History] ALPRAZolam [Xanax] 0.5 mg PO TID PRN 09/20/16 [History] Albuterol [Ventolin HFA] 1 puff INH Q4H PRN 11/22/16 [History] Gabapentin [Neurontin] 600 mg PO BEDTIME 11/22/16 [History] Prazosin HCl [Prazosin] 4 mg PO BEDTIME 11/22/16 [History] Mirtazapine [Mirtazapine] 0.5 tab PO DAILY 12/07/16 [History] Past Medical History - Past Health History Medical/Surgical History: Denies Medical/Surgical History HEENT History: Reports: Allergic Rhinitis Respiratory History: Reports: Bronchitis, Recurrent 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: Reports: GERD 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: Musculoskeletal History: Reports: Back Pain, Chronic, Fracture Neurological History: Reports: Brain Injury Psychiatric History: Reports: Addiction, Anxiety, Bipolar, Depression, Panic Attack, PTSD Dermatologic History: Reports: Eczema - Infectious Disease History Infectious Disease History: Reports: Chicken Pox - Past Surgical History Head Surgeries/Procedures: Reports: None HEENT Surgical History: Reports: Other (See Below) Other HEENT Surgeries/Procedures: decayed teeth Female Surgical History: Reports: Tubal Ligation Musculoskeletal Surgical History: Reports: Arthroscopic Knee Dermatological Surgical History: Reports: None Social & Family History - Family History Family Medical History: Noncontributory - Tobacco Use Smoking Status *Q: Current Every Day Smoker Years of Tobacco use: 25 Packs/Tins Daily: 1 Used Tobacco, but Quit: No Second Hand Smoke Exposure: No - Caffeine Use Caffeine Use: Reports: Soda - Alcohol Use Days Per Week of Alcohol Use: 0 - Recreational Drug Use Recreational Drug Use: Yes Drug Use in Last 12 Months: Yes Recreational Drug Type: Reports: Marijuana/Hashish Recreational Drug Use Frequency: Weekly - Living Situation & Occupation Living situation: Reports: with Family Review of Systems - Review of Systems Review Of Systems: ROS reveals no pertinent complaints other than HPI. ED EXAM, GENERAL - Physical Exam Exam: See Below Course - Vital Signs Last Recorded V/S: Last Vital Signs Temp 37.5 C 12/07/16 17:10 Pulse 99 12/07/16 17:10 Resp 20 12/07/16 17:10 BP 151/92 H 12/07/16 17:10 Pulse Ox 99 12/07/16 17:10 - Orders/Labs/Meds Orders: Active Orders 24 hr Category Date Time Status HYDROmorphone [Dilaudid] Med 12/07/16 17:51 Once 0.5 mg IM ONETIME ONE Meds: Medications Discontinued Medications Generic Name Dose Route Start Last Admin Trade Name Yash PRN Reason Stop Dose Admin Alprazolam 0.5 mg 12/07/16 17:47 Xanax PO 12/07/16 17:48 NOW ONE Hydromorphone HCl 1 mg 12/07/16 17:09 12/07/16 17:15 Dilaudid IM 12/07/16 17:10 1 mg ONETIME ONE Administration Departure - Departure Time of Disposition: 18:02 Disposition: Home, Self-Care 01 Condition: Fair Clinical Impression: Left knee injury Qualifiers: Encounter type: initial encounter Qualified Code(s): S89.92XA - Unspecified injury of left lower leg, initial encounter ACL (anterior cruciate ligament) tear Qualifiers: Encounter type: sequela Laterality: left Qualified Code(s): S83.512S - Sprain of anterior cruciate ligament of left knee, sequela - Discharge Information Forms: ED Department Discharge Additional Instructions: Please follow-up with your doctor if you continue to have pain and it is not controlled with the medications that are provided. He might find that icing her knee will help the pain and discomfort. I would recommend that she use her brace whenever you're going up and down the stairs especially poor walking about. The brace is designed to protect you against having this sort of thing happen to you. - My Orders Last 24 Hours: My Active Orders 12/07/16 17:51 HYDROmorphone [Dilaudid] 0.5 mg IM ONETIME ONE - Assessment/Plan Last 24 Hours: My Active Orders 12/07/16 17:51 HYDROmorphone [Dilaudid] 0.5 mg IM ONETIME ONE
== END 2016-12-07 18:39 | disposition home or self-care (01) ==
LOC: JP.ED 16:55
DX: S83.512S Sprain of anterior cruciate ligament of left knee, sequela (principal); K21.9 Gastro-esophageal reflux disease without esophagitis; F31.9 Bipolar disorder, unspecified; F17.210 Nicotine dependence, cigarettes, uncomplicated; Z98.51 Tubal ligation status; Z98.890 Other specified postprocedural states; Z88.5 Allergy status to narcotic agent; Z88.8 Allergy status to other drugs, medicaments and biological substances; Z79.899 Other long term (current) drug therapy; W18.40XA Slipping, tripping and stumbling without falling, unspecified, initial encounter
CPT/HCPCS: 96372; 99283; A9270; J1170

== ENCOUNTER 2016-12-25 05:59 | Day surgery (SDC) | payer MEDICAID ==
[2016-12-25] MEDS ORDERED: Lactated Ringers 1,000 ML IV SCH (06:30)
[2016-12-25] MEDS ORDERED: Bupivacaine 0.25%/EPINEPHrine 1:200,000 30 ML SDV ONE (06:40)
[2016-12-25] MEDS ORDERED: methylPREDNISolone Acetate 80 MG/ML SDV ONE (06:40)
[2016-12-25] MEDS ORDERED: Povidone-Iodine 10% Soln 118.25 ML Bottle ONE (06:40)
[2016-12-25] MEDS ORDERED: Propofol 200 MG/20 ML SDV ONE (07:14)
[2016-12-25] MEDS ORDERED: Ondansetron 4 MG/2 ML SDV ONE (07:14)
[2016-12-25] MEDS ORDERED: Succinylcholine 200 MG/10 ML MDV ONE (07:14)
[2016-12-25] MEDS ORDERED: Glycopyrrolate 0.2 MG/ML 5 ML MDV ONE (07:14)
[2016-12-25] MEDS ORDERED: fentaNYL 100 MCG/2 ML SDV ONE ×2 (07:14→08:35)
[2016-12-25] MEDS ORDERED: Midazolam 1 MG/ML 2 ML SDV ONE (07:14)
[2016-12-25] MEDS ORDERED: Neostigmine Methylsulfate 1 MG/ML 5 ML Syringe ONE (07:14)
[2016-12-25] MEDS ORDERED: Dexamethasone 4 MG/ML SDV ONE (07:14)
[2016-12-25] MEDS ORDERED: Rocuronium 50 MG/5 ML Vial ONE (07:14)
[2016-12-25] MEDS ORDERED: ceFAZolin 2 GM in Sodium Chloride 0.9% 50 ML IV ONE (07:30)
[2016-12-25] MEDS ORDERED: Lactated Ringers 1,000 ML ONE (08:27)
[2016-12-25] MEDS ORDERED: fentaNYL 100 MCG/2 ML SDV IVPUSH ONE (09:42)
[2016-12-25 11:21] VITALS: BP 110/78
--- NOTE | 2016-12-25 11:36 | OR ---
DATE OF PROCEDURE: 12/25/2016 PREOPERATIVE DIAGNOSIS: Left anterior cruciate ligament tear, chronic. POSTOPERATIVE DIAGNOSIS: Left anterior cruciate ligament tear, chronic. PROCEDURE: Right anterior cruciate ligament reconstruction. GRIEVANCE MANAGER: LORI Walker. ANESTHESIA: General endotracheal intubation. FLUIDS: Lactated Ringer's solution. ESTIMATED BLOOD LOSS: Less than 10 mL. COMPLICATIONS: None. SPECIMEN: None. DISCHARGE DISPOSITION: Stable to PACU. IMPLANT: [employer] with allograft. INDICATIONS FOR THE PROCEDURE: The patient is well known to me as she had been and she had extensive documentation and apparently 3 years ago, she had an injury to her anterior cruciate ligament on the left. It was documented for sometime that it was ruptured. I am not clear as to the reasons why was not operated on. Risks and benefits of the procedure were explained to the patient. Informed consent was obtained. Preoperative imaging confirmed the above-mentioned diagnosis. DETAILS OF PROCEDURE: The patient was seen preoperatively by myself and the Anesthesia staff in the preop holding area where the operative site was marked. She was brought to the operative suite by the Anesthesia staff, where general anesthesia was administered. A well- padded tourniquet was placed on the left thigh. The right lower extremity was placed into a stirrup booth. The left lower extremity was placed into a U-booth with a pad. All extremities found to be well padded. The left lower extremity was then prepped and draped in a sterile manner. Time-out was called identifying correct patient, correct procedure, the correct site, and antibiotics had begun with appropriate of time. Medial and lateral portals were made in the medial portal just 1 cm distal in the inferior pole of patella along the medial border of the patellar tendon. The lateral portal was done to the right 3rd junction of the patellar tendon. I used Metzenbaum to open the portals. The lateral portal was entered 1st and then I took pictures of the patella as well as the intercondylar groove, this was in good condition. The lateral and medial meniscus were evaluated and found to be in good condition. The anterior cruciate ligament was gone entirely. The footprint was not even visible. I then used a shaver and removed most of the infrapatellar fat pad for visualization as well as removing soft tissue from the anterior cruciate ligament insertion on the tibia as well as the lateral femoral wall. I then inserted my Llanes retractor which did not fit between the PCL and the femoral wall. I then did a wall plasty using an osteotome and then cleaned out that material with pituitaries and the shaver. I then made an incision 2-1/2 fingerbreadths distal to the joint line on the medial side and then inserted my Llanes retractor into the notch and then carefully extended the knee and set my guess to 65 degrees with appropriate change of the coronal and sagittal planes. I then put my guide through the proximal hole which was nearly parallel to the joint line and then drilled through the lateral hole on the Llanes retractor until I hit the post on the Llanes retractor. I then removed the Llanes retractor and evaluated the guidewire placement which I found to be quite good half way between the PCL and the lateral femoral wall. We then over-reamed this with a 10-mm drill in order to facilitate tibial graft passage. After this had been accomplished, we then removed the reamer and guidewire and then used my guide for 1.5 mm offset from the posterior femoral wall at approximately 9:30 position and then placed the guidewire there and the guidewire was placed at 35. We then over-reamed this just over 30 mm. I then split my graft into half way and then placed those ends through the [employer]ell[employer] flanger and then marked my landmarks at 30 mm. We then inserted the device through the tibial tunnel up to the femoral tunnel. We had very good length left over. After this had been accomplished, we then expanded the [employer]ell[employer] flanger inside the femur and then removed the femoral guide. After this had been accomplished, we then placed the knee in approximately 5 degrees of flexion and then under tension placed our sleeve for our screw and then placed the screw into the tibia. I then evaluated and cycled the joint anterior and drawer was negative. We then cut our limbs of our graft out of the tibial tunnel and then removed a small amount of bone material as well as shaving from the joint. I took final pictures and then closed the tibial tunnel incision with 2-0 Vicryl as well as 3-0 nylon and closed other portals with 3-0 nylon, followed by Betadine-soaked Adaptic followed by sterile dressing. The patient was then allowed to awaken from general anesthesia, taken to the PACU in stable condition. Leonides Espinoza DO /[id number]
== END 2016-12-25 11:55 | disposition home or self-care (01) ==
LOC: JP.SDS 05:59
PROVIDERS: ATTEND Orthopaedic Surgery
DX: S83.512A Sprain of anterior cruciate ligament of left knee, initial encounter (principal); K21.9 Gastro-esophageal reflux disease without esophagitis; F41.9 Anxiety disorder, unspecified; F32.9 Major depressive disorder, single episode, unspecified; Z88.8 Allergy status to other drugs, medicaments and biological substances; Z79.899 Other long term (current) drug therapy; Z79.2 Long term (current) use of antibiotics; Z98.890 Other specified postprocedural states; Z98.51 Tubal ligation status
CPT/HCPCS: 27407; A4217; C1776; J0330; J0690; J1100; J2250; J2405; J2704; J2710; J3010; J7050; J7120; J1040

== ENCOUNTER 2016-12-27 18:50 | Emergency (ER) | payer MEDICAID ==
[2016-12-27 19:06] VITALS: BP 138/88
[2016-12-27] MEDS ORDERED: Ketorolac 60 MG/2 ML SDV IM ONE (19:24)
[2016-12-27] MEDS ORDERED: oxyCODONE 5 MG Tab PO ONE (20:20)
--- NOTE | 2016-12-27 20:35 | EDM.PDOC ---
[id number] Complaint: SURGERY ON WED/FOOT SWOLLEN Time Seen by Provider: 12/27/16 19:10 Source of Information: Reports: Patient, Family History Limitations: Reports: No Limitations - History of Present Illness INITIAL COMMENTS - FREE TEXT/NARRATIVE: 36-year-old female who had left knee surgery 2 days ago presents with leg swelling and pain. She called the surgical nurses and was advised to come in for an ultrasound to rule out DVT. She's been taking one oxycodone every 4 hours and it's not handling the pain. No shortness of breath, no fever, they would also like her incisions checked because she thinks she "did something to the stitches". Severity: Moderate (.) Associated Symptoms: Reports: No Other Symptoms Left Knee Pain Score (Numeric/FACES): 10 - Related Data Allergies Allergy/AdvReac Type Severity Reaction Status Date / Time codeine Allergy Hives Verified 12/07/16 17:01 naproxen [From Naprosyn] Allergy Hives Verified 12/07/16 17:01 aspirin AdvReac Ringing in Verified 12/07/16 17:01 the Ears tramadol AdvReac Headache Verified 12/07/16 17:01 Home Meds: Home Meds Omeprazole [Omeprazole] 20 mg PO DAILY 03/05/14 [History] Ibuprofen 800 mg PO TID PRN 11/02/15 [History] Mometasone Furoate [Nasonex] 1 spray NASBOTH DAILY 11/02/15 [History] Cyclobenzaprine HCl [Cyclobenzaprine HCl] 10 mg PO TID 08/24/16 [History] Venlafaxine [Venlafaxine HCl ER] 150 mg PO DAILY 08/24/16 [History] ALPRAZolam [Xanax] 0.5 mg PO TID PRN 09/20/16 [History] Albuterol [Ventolin HFA] 1 puff INH Q4H PRN 11/22/16 [History] Gabapentin [Neurontin] 600 mg PO TID 11/22/16 [History] Prazosin HCl [Prazosin] 4 mg PO BEDTIME 11/22/16 [History] oxyCODONE HCl/Acetaminophen [oxyCODONE-Acetaminophen 5-325] 1 tab PO Q4H PRN 04/04 [History] Past Medical History - Past Health History Medical/Surgical History: Denies Medical/Surgical History HEENT History: Reports: Allergic Rhinitis, Impaired Vision Other HEENT History: wears glasses Respiratory History: Reports: Bronchitis, Recurrent 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: Reports: GERD 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 History: Reports: STD 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: Musculoskeletal History: Reports: Back Pain, Chronic, Fracture Neurological History: Reports: Concussion Psychiatric History: Reports: ADHD, Anxiety, Depression, Learning Disability, Mood Swings, Panic Attack, PTSD Endocrine/Metabolic History: Reports: Other (See Below) Other Endocrine/Metabolic History: calcium deficiency Dermatologic History: Reports: Eczema - Infectious Disease History Infectious Disease History: Reports: Chicken Pox - Past Surgical History Head Surgeries/Procedures: Reports: None HEENT Surgical History: Reports: Other (See Below) Other HEENT Surgeries/Procedures: decayed teeth GI Surgical History: Reports: None Female Surgical History: Reports: Tubal Ligation Endocrine Surgical History: Reports: None Neurological Surgical History: Reports: None Musculoskeletal Surgical History: Reports: Arthroscopic Knee Other Musculoskeletal Surgeries/Procedures:: knee surgery acl repair 12/25/16 cadaver graft Dermatological Surgical History: Reports: None Social & Family History - Family History Family Medical History: Noncontributory - Tobacco Use Smoking Status *Q: Current Every Day Smoker Years of Tobacco use: 26 Packs/Tins Daily: 1 Used Tobacco, but Quit: No Second Hand Smoke Exposure: Yes - Caffeine Use Caffeine Use: Reports: Coffee, Soda - Alcohol Use Days Per Week of Alcohol Use: 0 - Recreational Drug Use Recreational Drug Use: Yes Drug Use in Last 12 Months: Yes Recreational Drug Type: Reports: Marijuana/Hashish, Xanax Recreational Drug Use Frequency: Weekly - Living Situation & Occupation Living situation: Reports: with Family Review of Systems - Review of Systems Review Of Systems: See Below Constitutional: Denies: Fever Respiratory: Denies: Shortness of Breath Cardiovascular: Denies: Chest Pain Skin: Reports: No Symptoms Neurological: Reports: No Symptoms Psychiatric: Reports: Anxiety ED EXAM, GENERAL - Physical Exam Exam: See Below Exam Limited By: No Limitations General Appearance: Alert, Anxious, Mild Distress (Tearful, very uncomfortable) Respiratory/Chest: No Respiratory Distress, Lungs Clear Extremities: Other (Left leg has mild edema to the knee lower leg and foot. Bandages are removed and the incisions look excellent, there is no significant knee effusion.) Course - Vital Signs Last Recorded V/S: Last Vital Signs Temp 98.3 F 12/27/16 19:04 Pulse 106 H 12/27/16 19:04 Resp 16 12/27/16 19:04 BP 138/88 12/27/16 19:04 Pulse Ox 98 12/27/16 19:04 - Orders/Labs/Meds Orders: Active Orders 24 hr Category Date Time Status VL Duplex Lwr Ext Veins Ltd Lt [US] Stat Exams 12/27/16 19:24 Taken Meds: Medications Discontinued Medications Generic Name Dose Route Start Last Admin Trade Name Yash PRN Reason Stop Dose Admin Ketorolac Tromethamine 60 mg 12/27/16 19:24 12/27/16 19:31 Toradol IM 12/27/16 19:25 60 mg ONETIME ONE Administration Oxycodone HCl 10 mg 12/27/16 20:20 12/27/16 20:25 Oxycodone PO 12/27/16 20:21 10 mg ONETIME ONE Administration - Re-Assessments/Exams Free Text/Narrative Re-Assessment/Exam: 12/27/16 20:34 Patient was given 60 mg of Toradol and reported after an hour that it did not help, she continued to act very uncomfortable and tearful. A DVT ultrasound was obtained, and prior to the ultrasound 10 mg of oxycodone by mouth was given. I informed her that I was everything we could provide for pain at this time and she'll have to continue taking her own medicine. 12/27/16 21:05 DVT study was negative. Patient was reassured, will be discharged to take one oxycodone every 2-3 hours for the next 24-48 hours for pain control. Continue with other instructions provided by her surgeon. Departure - Departure Time of Disposition: 21:38 Disposition: Home, Self-Care 01 Condition: Good Clinical Impression: Postoperative pain of left knee - Discharge Information Instructions: Knee Pain Referrals: Ana Bellamy NP [Primary Care Provider] - Forms: ED Department Discharge Care Plan Goals: Continue with oxycodone for pain control, 1 every 2-3 hours. Continue with ibuprofen as well along with elevation and other instructions provided by surgeon. Recheck on Friday if not improving satisfactorily. - My Orders Last 24 Hours: My Active Orders 12/27/16 19:24 VL Duplex Lwr Ext Veins Ltd Lt [US] Stat - Assessment/Plan Last 24 Hours: My Active Orders 12/27/16 19:24 VL Duplex Lwr Ext Veins Ltd Lt [US] Stat
--- NOTE | 2016-12-30 08:19 | US ---
VL Duplex Lwr Ext Veins Ltd Lt INDICATION: Post op swelling leg TECHNIQUE: The deep venous system of left leg imaged, including the common femoral, deep femoral, bourgeois perficial femoral, vertebral, and where visualized, calf veins. Imaging included duplex, compressi on, and augmentation. COMPARISON: None FINDINGS: There is no evidence of deep venous thrombosis. Other incidental findings: None. IMPRESSION: No evidence of deep venous thrombosis.
== END 2016-12-27 21:39 | disposition home or self-care (01) ==
LOC: JP.ED 18:50
DX: G89.18 Other acute postprocedural pain (principal); M25.562 Pain in left knee; K21.9 Gastro-esophageal reflux disease without esophagitis; F41.0 Panic disorder [episodic paroxysmal anxiety]; F32.9 Major depressive disorder, single episode, unspecified; F17.210 Nicotine dependence, cigarettes, uncomplicated; Z98.51 Tubal ligation status; Z98.890 Other specified postprocedural states; Z88.5 Allergy status to narcotic agent; Z88.8 Allergy status to other drugs, medicaments and biological substances; Z79.899 Other long term (current) drug therapy
CPT/HCPCS: 93971; 96372; 99284; A9270; J1885

== ENCOUNTER 2017-03-10 16:22 | Emergency (ER) | payer MEDICAID ==
[2017-03-10 16:30] VITALS: BP 176/113
[2017-03-10] MEDS ORDERED: Ketorolac 60 MG/2 ML SDV IM ONE (16:42)
[2017-03-10] MEDS ORDERED: methylPREDNISolone Sodium Succinate 125 MG/2 ML SDV IM ONE (17:06)
--- NOTE | 2017-03-10 17:10 | EDM.PDOC ---
ED HPI GENERAL MEDICAL PROBLEM - General Chief Complaint: Back Pain or Injury Stated Complaint: BACK PAIN Time Seen by Provider: 03/10/17 16:35 Source of Information: Reports: Patient History Limitations: Reports: No Limitations - History of Present Illness INITIAL COMMENTS - FREE TEXT/NARRATIVE: 36-year-old female in with severe upper back pain. This is a chronic problem for her and she is waiting for point injections, she called the clinic today asking why she hasn't had them ordered yet and they sent her to the emergency room. They did offer her an anti-inflammatory but she refused. She has many chronic pain issues, I saw her a few months ago after knee surgery when she was hysterical with pain although everything looked excellent. She has had a history of overusing pain medication, and violated a pain contract in 2013. She was prescribed several 100 pain medications since her knee surgery in December. She is also on full dose gabapentin. Onset: Unknown/Unsure Middle Back Pain Score (Numeric/FACES): 10 - Related Data Allergies Allergy/AdvReac Type Severity Reaction Status Date / Time codeine Allergy Hives Verified 03/10/17 20:50 naproxen [From Naprosyn] Allergy Hives Verified 03/10/17 20:50 aspirin AdvReac Ringing in Verified 03/10/17 20:50 the Ears tramadol AdvReac Headache Verified 03/10/17 20:50 Home Meds: Home Meds Omeprazole [Omeprazole] 20 mg PO DAILY 03/05/14 [History] Ibuprofen 800 mg PO TID PRN 11/02/15 [History] Mometasone Furoate [Nasonex] 1 spray NASBOTH DAILY 11/02/15 [History] Cyclobenzaprine HCl [Cyclobenzaprine HCl] 10 mg PO TID 08/24/16 [History] Venlafaxine [Venlafaxine HCl ER] 150 mg PO DAILY 08/24/16 [History] ALPRAZolam [Xanax] 0.5 mg PO TID PRN 09/20/16 [History] Albuterol [Ventolin HFA] 1 puff INH Q4H PRN 11/22/16 [History] Gabapentin [Neurontin] 600 mg PO TID 11/22/16 [History] Prazosin HCl [Prazosin] 4 mg PO BEDTIME 11/22/16 [History] Ondansetron [Zofran] 1 tab PO TID PRN 01/08/17 [History] Hydrocodone/Acetaminophen [Hydrocodon-Acetaminophen 5-325] 1 each PO QID PRN [History] Past Medical History - Past Health History Medical/Surgical History: Denies Medical/Surgical History HEENT History: Reports: Allergic Rhinitis, Impaired Vision Other HEENT History: wears glasses Respiratory History: Reports: Bronchitis, Recurrent 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: Reports: GERD 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: Reports: Musculoskeletal History: Reports: Back Pain, Chronic, Fracture, Other (See Below ) Other Musculoskeletal History: f/u ACL repair Neurological History: Reports: Concussion Psychiatric History: Reports: ADHD, Anxiety, Depression, Learning Disability, Mood Swings, Panic Attack, PTSD Endocrine/Metabolic History: Reports: Other (See Below) Other Endocrine/Metabolic History: calcium deficiency Dermatologic History: Reports: Eczema - Infectious Disease History Infectious Disease History: Reports: Chicken Pox - Past Surgical History GI Surgical History: Reports: None Endocrine Surgical History: Reports: None Neurological Surgical History: Reports: None Other Musculoskeletal Surgeries/Procedures:: knee surgery acl repair 12/25/16 cadaver graft Dermatological Surgical History: Reports: None Social & Family History - Family History Family Medical History: Noncontributory - Tobacco Use Smoking Status *Q: Unknown Ever Smoked Years of Tobacco use: 26 Packs/Tins Daily: 1 Used Tobacco, but Quit: No Second Hand Smoke Exposure: Yes - Caffeine Use Caffeine Use: Reports: Coffee, Soda - Alcohol Use Days Per Week of Alcohol Use: 0 - Recreational Drug Use Recreational Drug Use: Yes Drug Use in Last 12 Months: Yes Recreational Drug Type: Reports: Marijuana/Hashish, Xanax Recreational Drug Use Frequency: Weekly - Living Situation & Occupation Living situation: Reports: with Family ED ROS GENERAL - Review of Systems Review Of Systems: See Below Constitutional: Denies: Weakness Respiratory: Denies: Shortness of Breath Cardiovascular: Denies: Chest Pain GI/Abdominal: Denies: Abdominal Pain Musculoskeletal: Reports: Other (Complains of significant left knee pain from her surgery. Her back is so bad she "doesn't notice') ED EXAM, UPPER BACK/NECK PAIN - Physical Exam Exam: See Below Exam Limited By: Other (Patient appears to be hyper dramatic and somewhat hysterical) General Appearance: Alert, Moderate Distress Back Exam: Paraspinal Tenderness (Somewhat difficult to examine because even light palpation of the upper back causes her to wince with pain. No asymmetry, swelling or bruising seen.) Course - Vital Signs Last Recorded V/S: Last Vital Signs Temp 100.8 F H 03/10/17 16:31 Pulse 135 H 03/10/17 16:31 Resp 18 03/10/17 16:31 BP 176/113 H 03/10/17 16:31 Pulse Ox 96 03/10/17 16:31 - Orders/Labs/Meds Meds: Medications Discontinued Medications Generic Name Dose Route Start Last Admin Trade Name Freq PRN Reason Stop Dose Admin Ketorolac Tromethamine 60 mg 03/10/17 16:42 03/10/17 16:46 Toradol IM 03/10/17 16:43 60 mg ONETIME ONE Administration Methylprednisolone Sodium Succinate 125 mg 03/10/17 17:06 03/10/17 17:11 Solu-Medrol IM 03/10/17 17:07 125 mg ONETIME ONE Administration - Re-Assessments/Exams Free Text/Narrative Re-Assessment/Exam: 03/10/17 17:10 Initially given 60 mg of Toradol IM, followed by 125 mg of Solu-Medrol IM. Departure - Departure Time of Disposition: 17:32 Disposition: Home, Self-Care 01 Condition: Good Clinical Impression: Chronic thoracic back pain Qualifiers: Back pain laterality: bilateral Qualified Code(s): M54.6 - Pain in thoracic spine - Discharge Information Instructions: Back Pain, Adult, [id number] Referrals: PCP,None [Primary Care Provider] - Forms: ED Department Discharge Care Plan Goals: Continue your current medications, its very important that you stay active, even exercise if possible. Recheck with your primary provider if needed if not improving satisfactorily over the next several days.
== END 2017-03-10 17:33 | disposition home or self-care (01) ==
LOC: JP.ED 16:22
DX: M54.6 Pain in thoracic spine (principal); G89.29 Other chronic pain; Z88.5 Allergy status to narcotic agent; Z88.8 Allergy status to other drugs, medicaments and biological substances
CPT/HCPCS: 96372; 99283; J1885; J2930

== ENCOUNTER 2017-03-10 20:02 | Emergency (ER) | payer MEDICAID ==
[2017-03-10 20:40] VITALS: BP 140/94
[2017-03-10] MEDS ORDERED: HYDROmorphone 1 MG/ML Syringe IM ONE (21:10)
--- NOTE | 2017-03-10 21:25 | EDM.PDOC ---
ED HPI GENERAL MEDICAL PROBLEM - General Chief Complaint: Back Pain or Injury Stated Complaint: BACK SPASMS Time Seen by Provider: 03/10/17 21:23 Source of Information: Reports: Patient, Old Records, RN Notes Reviewed History Limitations: Reports: No Limitations - History of Present Illness INITIAL COMMENTS - FREE TEXT/NARRATIVE: 36-year-old female presents emergency department day complaint of mid back pain , she has known history of chronic thoracic back pain was in the emergency department earlier today same complaint provided Toradol of which she feels she got no relief from uses Flexeril also feels she has no relief from she is set up for trigger point injections however that appointment has not happened yet does not see anybody in the chronic pain clinic does have a violation of a pain contract at the [facility] 2013 back Pain Score (Numeric/FACES): 10 - Related Data Allergies Allergy/AdvReac Type Severity Reaction Status Date / Time codeine Allergy Hives Verified 03/10/17 20:50 naproxen [From Naprosyn] Allergy Hives Verified 03/10/17 20:50 aspirin AdvReac Ringing in Verified 03/10/17 20:50 the Ears tramadol AdvReac Headache Verified 03/10/17 20:50 Home Meds: Home Meds Omeprazole [Omeprazole] 20 mg PO DAILY 03/05/14 [History] Ibuprofen 800 mg PO TID PRN 11/02/15 [History] Mometasone Furoate [Nasonex] 1 spray NASBOTH DAILY 11/02/15 [History] Cyclobenzaprine HCl [Cyclobenzaprine HCl] 10 mg PO TID 08/24/16 [History] Venlafaxine [Venlafaxine HCl ER] 150 mg PO DAILY 08/24/16 [History] ALPRAZolam [Xanax] 0.5 mg PO TID PRN 09/20/16 [History] Albuterol [Ventolin HFA] 1 puff INH Q4H PRN 11/22/16 [History] Gabapentin [Neurontin] 600 mg PO TID 11/22/16 [History] Prazosin HCl [Prazosin] 4 mg PO BEDTIME 11/22/16 [History] Ondansetron [Zofran] 1 tab PO TID PRN 01/08/17 [History] Hydrocodone/Acetaminophen [Hydrocodon-Acetaminophen 5-325] 1 each PO QID PRN [History] Past Medical History HEENT History: Reports: Allergic Rhinitis, Impaired Vision Other HEENT History: wears glasses Respiratory History: Reports: Bronchitis, Recurrent 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: Reports: GERD 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: Musculoskeletal History: Reports: Back Pain, Chronic, Fracture, Other (See Below ) Other Musculoskeletal History: f/u ACL repair Neurological History: Reports: Concussion Psychiatric History: Reports: ADHD, Anxiety, Depression, Learning Disability, Mood Swings, Panic Attack, PTSD Endocrine/Metabolic History: Reports: Other (See Below) Other Endocrine/Metabolic History: calcium deficiency Dermatologic History: Reports: Eczema - Infectious Disease History Infectious Disease History: Reports: Chicken Pox - Past Surgical History Head Surgeries/Procedures: Reports: None GI Surgical History: Reports: None Endocrine Surgical History: Reports: None Neurological Surgical History: Reports: None Other Musculoskeletal Surgeries/Procedures:: knee surgery acl repair 12/25/16 cadaver graft Dermatological Surgical History: Reports: None Social & Family History - Family History Family Medical History: Noncontributory - Tobacco Use Smoking Status *Q: Current Every Day Smoker Years of Tobacco use: 26 Packs/Tins Daily: 0.7 Used Tobacco, but Quit: No Second Hand Smoke Exposure: Yes - Caffeine Use Caffeine Use: Reports: Coffee, Energy Drinks - Alcohol Use Days Per Week of Alcohol Use: 0 - Recreational Drug Use Recreational Drug Use: Yes Drug Use in Last 12 Months: Yes Recreational Drug Type: Reports: Marijuana/Hashish Recreational Drug Use Frequency: Monthly - Living Situation & Occupation Living situation: Reports: with Family ED ROS GENERAL - Review of Systems Review Of Systems: See Below Constitutional: Reports: No Symptoms Respiratory: Reports: No Symptoms Cardiovascular: Reports: No Symptoms GI/Abdominal: Reports: No Symptoms : Reports: No Symptoms Musculoskeletal: Reports: Back Pain ED EXAM, GENERAL - Physical Exam Exam: See Below Exam Limited By: No Limitations General Appearance: Alert, Moderate Distress Respiratory/Chest: No Respiratory Distress Back Exam: Normal Inspection, Decreased Range of Motion, Muscle Spasm, Paraspinal Tenderness. No: CVA Tenderness (R), CVA Tenderness (L), Vertebral Tenderness Course - Vital Signs Last Recorded V/S: Last Vital Signs Temp 99.5 F 03/10/17 20:38 Pulse 96 03/10/17 20:38 Resp 20 03/10/17 20:38 BP 140/94 H 03/10/17 20:38 Pulse Ox 96 03/10/17 20:38 - Orders/Labs/Meds Meds: Medications Discontinued Medications Generic Name Dose Route Start Last Admin Trade Name Yash PRN Reason Stop Dose Admin Hydromorphone HCl 1 mg 03/10/17 21:10 03/10/17 21:27 Dilaudid IM 03/10/17 21:11 1 mg ONETIME ONE Administration Departure - Departure Time of Disposition: 22:13 Disposition: Home, Self-Care 01 Condition: Good Clinical Impression: Chronic thoracic back pain Qualifiers: Back pain laterality: bilateral Qualified Code(s): M54.6 - Pain in thoracic spine - Discharge Information Referrals: Ana Bellamy NP [Primary Care Provider] - Forms: ED Department Discharge Care Plan Goals: Use hydrocodone as needed for breakthrough pain, please follow-up with your primary care provider in the next 2-3 days for reevaluation - Assessment/Plan Plan: Assessment Acuity = chronic Site and laterality = thoracic back pain Etiology = unclear etiology Manifestations = none Location of injury = Home Lab values = none Plan She had good improvement with the Dilaudid provided in emergency department discharged home with hydrocodone 5/325 one tab by mouth 3 times a day when necessary #10 she is to follow-up with her primary care in the next 2-3 days for reevaluation. Outpatient will call her tomorrow to discuss trigger point injections Patient was in agreement with the plan all questions were answered, they were instructed to return to the emergency department or call for worsening symptoms. This note was dictated using Streak voice recognition software please call with any questions.
== END 2017-03-10 22:27 | disposition home or self-care (01) ==
LOC: JP.ED 20:02
DX: M54.6 Pain in thoracic spine (principal); G89.29 Other chronic pain; Z88.5 Allergy status to narcotic agent; Z79.899 Other long term (current) drug therapy; Z88.6 Allergy status to analgesic agent; Z88.8 Allergy status to other drugs, medicaments and biological substances
CPT/HCPCS: 96372; 99283; J1170; J1885; J2930

== ENCOUNTER 2017-03-27 11:01 | Emergency (ER) | payer MEDICAID ==
--- NOTE | 2017-03-27 11:13 | EDM.PDOC ---
ED HPI GENERAL MEDICAL PROBLEM - General Chief Complaint: Lower Extremity Injury/Pain Stated Complaint: FELL ON LEFT LEG Time Seen by Provider: 03/27/17 11:10 Source of Information: Reports: Patient - History of Present Illness INITIAL COMMENTS - FREE TEXT/NARRATIVE: 23-year-old female who had a recent left ACL reconstruction the summer had been doing well, was up on a stool this morning "adjusting her curtains" when the stool moved and she lost her balance and fell. She "gimped into the emergency room on her own" to be seen with severe pain in her knee and left ankle. She is tearful and hyper dramatic which is her typical presentation. She is complaining of left knee and left ankle pain, no injury elsewhere. Onset: Today Duration: Hour(s): (Within the last 1-2 hours) Location: Reports: Lower Extremity, Left Worsens with: Reports: Movement (Movement or weightbearing is painful) Associated Symptoms: Reports: No Other Symptoms - Related Data Allergies Allergy/AdvReac Type Severity Reaction Status Date / Time codeine Allergy Hives Verified 03/26/17 10:03 naproxen [From Naprosyn] Allergy Hives Verified 03/26/17 10:03 aspirin AdvReac Ringing in Verified 03/26/17 10:03 the Ears tramadol AdvReac Headache Verified 03/26/17 10:03 Home Meds: Home Meds Omeprazole [Omeprazole] 20 mg PO DAILY 03/05/14 [History] Ibuprofen 800 mg PO TID PRN 11/02/15 [History] Mometasone Furoate [Nasonex] 1 spray NASBOTH DAILY 11/02/15 [History] Cyclobenzaprine HCl [Cyclobenzaprine HCl] 10 mg PO TID 08/24/16 [History] Venlafaxine [Venlafaxine HCl ER] 150 mg PO DAILY 08/24/16 [History] ALPRAZolam [Xanax] 0.5 mg PO TID PRN 09/20/16 [History] Albuterol [Ventolin HFA] 1 puff INH Q4H PRN 11/22/16 [History] Gabapentin [Neurontin] 600 mg PO TID 11/22/16 [History] Prazosin HCl [Prazosin] 4 mg PO BEDTIME 11/22/16 [History] Ondansetron [Zofran] 1 tab PO TID PRN 01/08/17 [History] Past Medical History HEENT History: Reports: Allergic Rhinitis, Impaired Vision Other HEENT History: wears glasses Respiratory History: Reports: Bronchitis, Recurrent 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: Reports: GERD 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 History: Reports: 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: Musculoskeletal History: Reports: Back Pain, Chronic, Fracture, Other (See Below ) Other Musculoskeletal History: f/u ACL repair Neurological History: Reports: Concussion Psychiatric History: Reports: ADHD, Anxiety, Depression, Learning Disability, Mood Swings, Panic Attack, PTSD Endocrine/Metabolic History: Reports: Other (See Below) Other Endocrine/Metabolic History: calcium deficiency Dermatologic History: Reports: Eczema - Infectious Disease History Infectious Disease History: Reports: Chicken Pox - Past Surgical History GI Surgical History: Reports: None Endocrine Surgical History: Reports: None Neurological Surgical History: Reports: None Other Musculoskeletal Surgeries/Procedures:: knee surgery acl repair 12/25/16 cadaver graft Dermatological Surgical History: Reports: None Social & Family History - Family History Family Medical History: Noncontributory - Tobacco Use Smoking Status *Q: Current Every Day Smoker Years of Tobacco use: 26 Packs/Tins Daily: 0.7 Used Tobacco, but Quit: No Second Hand Smoke Exposure: Yes - Caffeine Use Caffeine Use: Reports: Coffee, Energy Drinks - Alcohol Use Days Per Week of Alcohol Use: 0 - Recreational Drug Use Recreational Drug Use: Yes Drug Use in Last 12 Months: Yes Recreational Drug Type: Reports: Marijuana/Hashish Recreational Drug Use Frequency: Monthly - Living Situation & Occupation Living situation: Reports: with Family Review of Systems - Review of Systems Review Of Systems: See Below Constitutional: Denies: Fever Respiratory: Denies: Shortness of Breath, Cough Cardiovascular: Denies: Chest Pain GI/Abdominal: Denies: Abdominal Pain Skin: Denies: Bruising Neurological: Denies: Paresthesia ED EXAM, GENERAL - Physical Exam Exam: See Below Exam Limited By: No Limitations General Appearance: Alert, Anxious, Mild Distress (Tearful, hyper dramatic) Head: Atraumatic Neck: Non-Tender Respiratory/Chest: No Respiratory Distress Extremities: Other (Exam of the lower extremity on the left shows well-healed surgical scars, and no significant swelling around the left knee. The left ankle has no edema, deformity or abrasion. Any mild palpation around the left knee and left ankle causes her to almost scream in pain way out of proportion to the injury seen.) Course - Vital Signs Last Recorded V/S: Last Vital Signs Temp 100.4 F 03/27/17 11:25 Pulse 114 H 03/27/17 11:25 Resp 18 03/27/17 11:25 BP 138/87 03/27/17 11:25 Pulse Ox 97 03/27/17 11:25 - Orders/Labs/Meds Orders: Active Orders 24 hr Category Date Time Status Ankle Min 3V Lt [CR] Stat Exams 03/27/17 11:29 Taken Knee 3V Lt [CR] Stat Exams 03/27/17 11:29 Taken - Re-Assessments/Exams Free Text/Narrative Re-Assessment/Exam: 03/27/17 12:02 03/27/17 11:57 X-ray of the left knee and left ankle showed no acute fracture. I put an Justen wrap around her knee. Unfortunately the orthopedic department cannot provide any further care for this patient outside of a true emergency due to inappropriate confrontations and threats the patient made to the department earlier this year. I asked her to use her crutches that she has for the next day or 2 but she should increase activity as tolerated. She may have to recheck with orthopedics at the clinic if not improving satisfactorily within the next 5 -7 days. Departure - Departure Time of Disposition: 12:16 Disposition: Home, Self-Care 01 Condition: Good Clinical Impression: Contusion of left ankle Left knee sprain Qualifiers: Encounter type: initial encounter Involved ligament of knee: unspecified ligament Qualified Code(s): S83.92XA - Sprain of unspecified site of left knee, initial encounter - Discharge Information Instructions: Knee Sprain, [id number] Referrals: Ana Bellamy NP [Primary Care Provider] - Forms: ED Department Discharge Care Plan Goals: Wrap knee for comfort and increase activity as tolerated. Use crutches if needed. Consider rechecking with the orthopedic Department at the clinic in 5- 10 days if not improving satisfactorily. - My Orders Last 24 Hours: My Active Orders 03/27/17 11:29 Ankle Min 3V Lt [CR] Stat Knee 3V Lt [CR] Stat - Assessment/Plan Last 24 Hours: My Active Orders 03/27/17 11:29 Ankle Min 3V Lt [CR] Stat Knee 3V Lt [CR] Stat
[2017-03-27 11:36] VITALS: BP 138/87
--- NOTE | 2017-03-27 13:01 | CR ---
Knee 3V Lt INDICATION: fall,pain FINDINGS: No evidence for acute fracture. Small knee effusion or synovitis. Postoperative changes lef t knee.
--- NOTE | 2017-03-27 13:02 | CR ---
Ankle Min 3V Lt INDICATION: fall,pain FINDINGS: Negative left ankle.
== END 2017-03-27 12:18 | disposition home or self-care (01) ==
LOC: JP.ED 11:01
DX: S83.92XA Sprain of unspecified site of left knee, initial encounter (principal); S90.02XA Contusion of left ankle, initial encounter; F17.210 Nicotine dependence, cigarettes, uncomplicated; Z98.890 Other specified postprocedural states; Z79.899 Other long term (current) drug therapy; Z88.5 Allergy status to narcotic agent; Z88.6 Allergy status to analgesic agent; Z88.8 Allergy status to other drugs, medicaments and biological substances; W07.XXXA Fall from chair, initial encounter
CPT/HCPCS: 73562-26-LT; 73562-LT; 73610-26-LT; 73610-LT; 99284

== ENCOUNTER 2017-04-24 22:57 | Emergency (ER) | payer MEDICAID ==
[2017-04-24 23:08] VITALS: BP 127/91
[2017-04-24] MEDS ORDERED: Ketorolac 60 MG/2 ML SDV IM ONE (23:35)
--- NOTE | 2017-04-24 23:53 | EDM.PDOC ---
ED HPI GENERAL MEDICAL PROBLEM - General Chief Complaint: ENT Problem Stated Complaint: TOP TOOTH PAIN Time Seen by Provider: 04/24/17 23:10 Source of Information: Reports: Patient History Limitations: Reports: No Limitations - History of Present Illness INITIAL COMMENTS - FREE TEXT/NARRATIVE: 36-year-old female had a dental procedure done on a posterior maxillary molar on the left side, and is having significant pain. Onset: Today Left Upper Tooth/Teeth Pain Score (Numeric/FACES): 9 - Related Data Allergies Allergy/AdvReac Type Severity Reaction Status Date / Time codeine Allergy Hives Verified 04/24/17 23:08 naproxen [From Naprosyn] Allergy Hives Verified 04/24/17 23:08 aspirin AdvReac Ringing in Verified 04/24/17 23:08 the Ears tramadol AdvReac Headache Verified 04/24/17 23:08 Home Meds: Home Meds Omeprazole [Omeprazole] 20 mg PO DAILY 03/05/14 [History] Ibuprofen 800 mg PO TID PRN 11/02/15 [History] Mometasone Furoate [Nasonex] 1 spray NASBOTH DAILY 11/02/15 [History] Cyclobenzaprine HCl [Cyclobenzaprine HCl] 10 mg PO TID 08/24/16 [History] Venlafaxine [Venlafaxine HCl ER] 150 mg PO DAILY 08/24/16 [History] ALPRAZolam [Xanax] 0.5 mg PO TID PRN 09/20/16 [History] Albuterol [Ventolin HFA] 1 puff INH Q4H PRN 11/22/16 [History] Gabapentin [Neurontin] 600 mg PO TID 11/22/16 [History] Prazosin HCl [Prazosin] 4 mg PO BEDTIME 11/22/16 [History] Ondansetron [Zofran] 1 tab PO TID PRN 01/08/17 [History] Past Medical History HEENT History: Reports: Allergic Rhinitis, Impaired Vision Other HEENT History: wears glasses Respiratory History: Reports: Bronchitis, Recurrent 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: Reports: GERD 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: Musculoskeletal History: Reports: Back Pain, Chronic, Fracture, Other (See Below ) Other Musculoskeletal History: f/u ACL repair Neurological History: Reports: Concussion Psychiatric History: Reports: ADHD, Anxiety, Depression, Learning Disability, Mood Swings, Panic Attack, PTSD Endocrine/Metabolic History: Reports: Other (See Below) Other Endocrine/Metabolic History: calcium deficiency Dermatologic History: Reports: Eczema - Infectious Disease History Infectious Disease History: Reports: Chicken Pox - Past Surgical History GI Surgical History: Reports: None Endocrine Surgical History: Reports: None Neurological Surgical History: Reports: None Other Musculoskeletal Surgeries/Procedures:: knee surgery acl repair 12/25/16 cadaver graft Dermatological Surgical History: Reports: None Social & Family History - Family History Family Medical History: Noncontributory - Tobacco Use Smoking Status *Q: Unknown Ever Smoked Years of Tobacco use: 26 Packs/Tins Daily: 0.7 Used Tobacco, but Quit: No Second Hand Smoke Exposure: Yes - Caffeine Use Caffeine Use: Reports: Coffee, Energy Drinks - Alcohol Use Days Per Week of Alcohol Use: 0 - Recreational Drug Use Recreational Drug Use: Yes Drug Use in Last 12 Months: Yes Recreational Drug Type: Reports: Marijuana/Hashish Recreational Drug Use Frequency: Monthly - Living Situation & Occupation Living situation: Reports: with Family ED ROS ENT - Review of Systems Review Of Systems: See Below Constitutional: Denies: Fever HEENT: Reports: Dental Pain Respiratory: Denies: Shortness of Breath GI/Abdominal: Denies: Nausea, Vomiting Neurological: Reports: Headache ED EXAM, ENT - Physical Exam Exam: See Below Exam Limited By: No Limitations General Appearance: Alert, Anxious (Tearful, uncomfortable) Mouth/Throat: Other (There is no gingival erythema or swelling. The recently filled tooth is tender to percussion but does not appear to be inflamed) Course - Vital Signs Last Recorded V/S: Last Vital Signs Temp 98.4 F 04/24/17 23:06 Pulse 106 H 04/24/17 23:06 Resp 14 04/24/17 23:06 BP 127/91 H 04/24/17 23:06 Pulse Ox 99 04/24/17 23:06 - Orders/Labs/Meds Meds: Medications Discontinued Medications Generic Name Dose Route Start Last Admin Trade Name Freq PRN Reason Stop Dose Admin Ketorolac Tromethamine 60 mg 04/24/17 23:35 04/24/17 23:47 Toradol IM 04/24/17 23:36 60 mg ONETIME ONE Administration - Re-Assessments/Exams Free Text/Narrative Re-Assessment/Exam: 04/24/17 23:52 Patient was given an injection of Toradol 60 mg IM. She was also given 10 additional doses of Toradol to use 3 times a day through the weekend and 6 hydrocodone for nighttime pain control. There is no reason she should need any further narcotics for this dental work unless she develops swelling or fever she should return. Departure - Departure Time of Disposition: 00:05 Disposition: Home, Self-Care 01 Condition: Good Clinical Impression: Pain due to dental caries - Discharge Information Instructions: Tooth Injuries, [id number] Referrals: Ana Bellamy NP [Primary Care Provider] - Forms: ED Department Discharge Care Plan Goals: Use ketorolac 3 times a day, and add hydrocodone as needed for rest. Recheck Friday as scheduled.
== END 2017-04-25 00:08 | disposition home or self-care (01) ==
LOC: JP.ED 22:57
DX: K02.9 Dental caries, unspecified (principal); Z77.22 Contact with and (suspected) exposure to environmental tobacco smoke (acute) (chronic); Z79.899 Other long term (current) drug therapy; Z88.6 Allergy status to analgesic agent; Z88.5 Allergy status to narcotic agent
CPT/HCPCS: 96372; 99283; J1885

== ENCOUNTER 2017-06-08 22:31 | Emergency (ER) | payer MEDICAID ==
--- NOTE | 2017-06-08 22:53 | EDM.PDOCBH ---
ED HPI GENERAL MEDICAL PROBLEM - General Chief Complaint: Behavioral/Psych Stated Complaint: EVAL Time Seen by Provider: 06/08/17 22:43 Source of Information: Reports: Patient, RN Notes Reviewed History Limitations: Reports: No Limitations - History of Present Illness INITIAL COMMENTS - FREE TEXT/NARRATIVE: 36-year-old female presents emergency department today for an evaluation psychiatric she did get into an argument with her significant other today she also has children involved she became upset she has superficial skin abrasions on her right wrists she denies any suicidal ideation or homicidal ideation states she was very upset realizes this gesture was "stupid" she does have an appointment with her counselor tomorrow she does admit to being depressed is on antidepressants Left Knee Pain Score (Numeric/FACES): 7 - Related Data Allergies Allergy/AdvReac Type Severity Reaction Status Date / Time codeine Allergy Hives Verified 06/08/17 22:37 naproxen [From Naprosyn] Allergy Hives Verified 06/08/17 22:37 aspirin AdvReac Ringing in Verified 06/08/17 22:37 the Ears tramadol AdvReac Headache Verified 06/08/17 22:37 Home Meds: Home Meds Omeprazole [Omeprazole] 20 mg PO DAILY 03/05/14 [History] Ibuprofen 800 mg PO TID PRN 11/02/15 [History] Mometasone Furoate [Nasonex] 1 spray NASBOTH DAILY 11/02/15 [History] Cyclobenzaprine HCl [Cyclobenzaprine HCl] 10 mg PO TID 08/24/16 [History] Venlafaxine [Venlafaxine HCl ER] 150 mg PO DAILY 08/24/16 [History] ALPRAZolam [Xanax] 0.5 mg PO TID PRN 09/20/16 [History] Albuterol [Ventolin HFA] 1 puff INH Q4H PRN 11/22/16 [History] Gabapentin [Neurontin] 600 mg PO QID 11/22/16 [History] Prazosin HCl [Prazosin] 6 mg PO BEDTIME 11/22/16 [History] Ondansetron [Zofran] 1 tab PO TID PRN 01/08/17 [History] Past Medical History HEENT History: Reports: Allergic Rhinitis, Impaired Vision Other HEENT History: wears glasses Respiratory History: Reports: Bronchitis, Recurrent 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: Reports: GERD 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: Musculoskeletal History: Reports: Back Pain, Chronic, Fracture, Other (See Below ) Other Musculoskeletal History: f/u ACL repair Neurological History: Reports: Concussion Psychiatric History: Reports: ADHD, Anxiety, Depression, Learning Disability, Mood Swings, Panic Attack, PTSD Endocrine/Metabolic History: Reports: Other (See Below) Other Endocrine/Metabolic History: calcium deficiency Dermatologic History: Reports: Eczema - Infectious Disease History Infectious Disease History: Reports: Chicken Pox - Past Surgical History Head Surgeries/Procedures: Reports: None GI Surgical History: Reports: None Endocrine Surgical History: Reports: None Neurological Surgical History: Reports: None Other Musculoskeletal Surgeries/Procedures:: knee surgery acl repair 12/25/16 cadaver graft Dermatological Surgical History: Reports: None Social & Family History - Family History Family Medical History: Noncontributory - Tobacco Use Smoking Status *Q: Current Some Day Smoker Years of Tobacco use: 26 Packs/Tins Daily: 0.7 Used Tobacco, but Quit: No Second Hand Smoke Exposure: Yes - Caffeine Use Caffeine Use: Reports: Coffee, Energy Drinks - Alcohol Use Days Per Week of Alcohol Use: 0 - Recreational Drug Use Recreational Drug Use: Yes Drug Use in Last 12 Months: Yes Recreational Drug Type: Reports: Marijuana/Hashish Recreational Drug Use Frequency: Monthly - Living Situation & Occupation Living situation: Reports: with Family ED ROS GENERAL - Review of Systems Review Of Systems: See Below Constitutional: Reports: No Symptoms Respiratory: Reports: No Symptoms Cardiovascular: Reports: No Symptoms GI/Abdominal: Reports: No Symptoms : Reports: No Symptoms Psychiatric: Reports: Depression. Denies: Homicidal Ideation, Suicidal Ideation ED EXAM, BEHAVIORAL HEALTH - Physical Exam Exam: See Below Exam Limited By: No Limitations General Appearance: Alert, WD/WN, No Apparent Distress Respiratory/Chest: No Respiratory Distress Psychiatric: Alert, Depressed Mood, Tearful. No: Poor Eye Contact (Care will have her sign), Suicidal Plan, Suicidal Thoughts, Auditory Hallucinations, Visual Hallucinations, Pressured Speech, Paranoid Thoughts Departure - Departure Time of Disposition: 22:52 Disposition: Home, Self-Care 01 Condition: Fair Clinical Impression: Depressed Qualifiers: Depression Type: major depressive disorder Major depression recurrence: recurrent Active/Remission status: currently active Major depression episode severity: moderate Qualified Code(s): F33.1 - Major depressive disorder, recurrent, moderate - Discharge Information Referrals: PCP,None [Primary Care Provider] - Additional Instructions: Continue with your regular regular medications, please on a your safety contract , please call your counselor in the morning - Assessment/Plan Plan: Assessment Acuity = acute Site and laterality = depression Etiology = situational social Manifestations = acting out behavior Location of injury = Home Lab values = none Plan Did have her sign a safety contract she will follow-up with counseling tomorrow continue with her antidepressants This note was dictated using [employer] voice recognition software please call with any questions on syntax or shawn.
[2017-06-08 22:55] VITALS: BP 116/87
== END 2017-06-08 23:00 | disposition home or self-care (01) ==
LOC: JP.ED 22:31
DX: F33.1 Major depressive disorder, recurrent, moderate (principal); F17.210 Nicotine dependence, cigarettes, uncomplicated; Z88.5 Allergy status to narcotic agent; Z88.6 Allergy status to analgesic agent; Z79.899 Other long term (current) drug therapy
CPT/HCPCS: 99284

== ENCOUNTER 2017-08-29 21:23 | Emergency (ER) | payer MEDICAID ==
[2017-08-29 21:39] VITALS: BP 124/88
--- NOTE | 2017-08-29 21:59 | EDM.PDOC ---
ED HPI GENERAL MEDICAL PROBLEM - General Chief Complaint: Upper Extremity Injury/Pain Stated Complaint: PUNCHED A WALL HURT HER HAND Time Seen by Provider: 08/29/17 21:45 Source of Information: Reports: Patient History Limitations: Reports: No Limitations - History of Present Illness INITIAL COMMENTS - FREE TEXT/NARRATIVE: 36-year-old female got upset and punched a wall. She now has pain radiating from the right lateral hand up through the wrist and forearm. No other injury. 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 Pain Score (Numeric/FACES): 8 - Related Data Allergies Allergy/AdvReac Type Severity Reaction Status Date / Time codeine Allergy Hives Verified 08/29/17 21:40 lamotrigine [From Lamictal] Allergy Rash Verified 08/29/17 21:40 naproxen [From Naprosyn] Allergy Hives Verified 08/29/17 21:40 aspirin AdvReac Ringing in Verified 08/29/17 21:40 the Ears tramadol AdvReac Headache Verified 08/29/17 21:40 Home Meds: Home Meds Omeprazole 20 mg PO DAILY 03/05/14 [History] Ibuprofen 800 mg PO TID PRN 11/02/15 [History] Mometasone Furoate [Nasonex] 1 spray NASBOTH DAILY 11/02/15 [History] Venlafaxine [Venlafaxine HCl ER] 225 mg PO DAILY 08/24/16 [History] Albuterol [Ventolin HFA] 1 puff INH Q4H PRN 11/22/16 [History] Gabapentin [Neurontin] 600 mg PO QID 11/22/16 [History] Prazosin HCl [Prazosin] 6 mg PO BEDTIME 11/22/16 [History] Ondansetron [Zofran] 1 tab PO TID PRN 01/08/17 [History] ARIPiprazole [Aripiprazole] 1 mg PO DAILY 08/29/17 [History] Past Medical History HEENT History: Reports: Allergic Rhinitis, Impaired Vision Other HEENT History: wears glasses Respiratory History: Reports: Bronchitis, Recurrent 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: Reports: GERD 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: Musculoskeletal History: Reports: Back Pain, Chronic, Fracture, Other (See Below ) Other Musculoskeletal History: f/u ACL repair Neurological History: Reports: Concussion Psychiatric History: Reports: ADHD, Anxiety, Depression, Learning Disability, Mood Swings, Panic Attack, PTSD Endocrine/Metabolic History: Reports: Other (See Below) Other Endocrine/Metabolic History: calcium deficiency Dermatologic History: Reports: Eczema - Infectious Disease History Infectious Disease History: Reports: Chicken Pox - Past Surgical History Head Surgeries/Procedures: Reports: None Female Surgical History: Reports: Tubal Ligation Endocrine Surgical History: Reports: None Neurological Surgical History: Reports: None Other Musculoskeletal Surgeries/Procedures:: knee surgery acl repair 12/25/16 cadaver graft Dermatological Surgical History: Reports: None Social & Family History - Family History Family Medical History: Noncontributory - Tobacco Use Smoking Status *Q: Current Every Day Smoker Years of Tobacco use: 20 Packs/Tins Daily: 0.5 Used Tobacco, but Quit: No Second Hand Smoke Exposure: Yes - Caffeine Use Caffeine Use: Reports: Energy Drinks - Alcohol Use Days Per Week of Alcohol Use: 0 - Recreational Drug Use Recreational Drug Use: No Drug Use in Last 12 Months: Yes Recreational Drug Type: Reports: Marijuana/Hashish Recreational Drug Use Frequency: Monthly - Living Situation & Occupation Living situation: Reports: with Family Review of Systems - Review of Systems Review Of Systems: See Below Constitutional: Denies: Fever Respiratory: Denies: Shortness of Breath GI/Abdominal: Denies: Nausea, Vomiting 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: Reports: No Symptoms Psychiatric: Reports: Depression (Patient is very upset that her boyfriend left her today) ED EXAM, GENERAL - Physical Exam Exam: See Below Exam Limited By: No Limitations General Appearance: Alert, Mild Distress (Tearful, hyperdramatic which is her usual presentation with injuries) Head: Atraumatic Respiratory/Chest: No Respiratory Distress Extremities: Other (Exam is otherwise limited to the right arm. It's difficult to objectively evaluate the arm because even light palpation anywhere causes her to wince and cry. She does not have any deformity or swelling or bruising. Her pain seems to be radiating and originating from the hand, especially the distal fourth and fifth MP areas) Course - Vital Signs Last Recorded V/S: Last Vital Signs Temp 99 F 08/29/17 21:46 Pulse 120 H 08/29/17 21:46 Resp 20 08/29/17 21:46 BP 124/88 08/29/17 21:46 Pulse Ox 97 08/29/17 21:46 - Orders/Labs/Meds Orders: Active Orders 24 hr Category Date Time Status Hand Comp Min 3V Rt [CR] Stat Exams 08/29/17 22:04 Taken - Re-Assessments/Exams Free Text/Narrative Re-Assessment/Exam: 08/29/17 21:59 An x-ray of the right hand was obtained. 08/29/17 22:22 Hand x-ray is normal. Patient was given an Justen wrap and told to take ibuprofen and increase activity as tolerated. Departure - Departure Time of Disposition: 22:41 Disposition: Home, Self-Care 01 Condition: Good Clinical Impression: Contusion of hand, right Qualifiers: Encounter type: initial encounter Qualified Code(s): S60.221A - Contusion of right hand, initial encounter - Discharge Information Instructions: Hand Contusion, [id number] Referrals: Lauryn Esparza, RN [Primary Care Provider] - Forms: ED Department Discharge Care Plan Goals: Ice, ibuprofen and increase activity as tolerated. Wrap your hand with an Justen wrap if it helps. Recheck next week if not healing satisfactorily. Avoid hitting things in the future. - My Orders Last 24 Hours: My Active Orders 08/29/17 22:04 Hand Comp Min 3V Rt [CR] Stat - Assessment/Plan Last 24 Hours: My Active Orders 08/29/17 22:04 Hand Comp Min 3V Rt [CR] Stat
--- NOTE | 2017-09-01 09:01 | CR ---
Hand Comp Min 3V Rt HISTORY: Trauma COMPARISON: 07/30/2015 FINDINGS: No acute fracture or dislocation. No bony destructive process seen. Old ulnar styloid injur y.
== END 2017-08-29 22:41 | disposition home or self-care (01) ==
LOC: JP.ED 21:23
DX: S60.221A Contusion of right hand, initial encounter (principal); F17.210 Nicotine dependence, cigarettes, uncomplicated; Z88.5 Allergy status to narcotic agent; Z88.6 Allergy status to analgesic agent; Z88.8 Allergy status to other drugs, medicaments and biological substances; Z79.899 Other long term (current) drug therapy; W22.8XXA Striking against or struck by other objects, initial encounter
CPT/HCPCS: 73130-26-RT; 73130-RT; 99284

== ENCOUNTER 2017-09-23 10:55 | Emergency (ER) | payer MEDICAID | END 2017-09-23 13:00 | disposition left against medical advice (07) | LOC: JP.ED 10:55 | DX: Z53.21 Procedure and treatment not carried out due to patient leaving prior to being seen by health care provider (principal) ==

== ENCOUNTER 2017-09-26 08:36 | Emergency (ER) | payer MEDICAID ==
[2017-09-26 08:58] VITALS: BP 144/97
--- NOTE | 2017-09-26 09:20 | EDM.PDOC ---
ED HPI GENERAL MEDICAL PROBLEM - General Chief Complaint: Upper Extremity Injury/Pain Stated Complaint: RIGHT HAND INJURY, PAIN IN FINGERS Time Seen by Provider: 09/26/17 09:20 Source of Information: Reports: Patient History Limitations: Reports: No Limitations - History of Present Illness INITIAL COMMENTS - FREE TEXT/NARRATIVE: pt arrived with a painful rt hand. . About 4 weeks ago The pt punched a wall. She was xrayed at that time that did not reveal any fractures. Onset: Gradual, Other ( The hand has gradually gotten more painful) Duration: Day(s):, Getting Worse Location: Reports: Upper Extremity, Right Associated Symptoms: Reports: No Other Symptoms Right Hand Pain Score (Numeric/FACES): 8 - Related Data Allergies Allergy/AdvReac Type Severity Reaction Status Date / Time buspirone [From BuSpar] Allergy Other Verified 09/26/17 09:02 codeine Allergy Hives Verified 09/26/17 09:00 lamotrigine [From Lamictal] Allergy Rash Verified 09/26/17 09:00 naproxen [From Naprosyn] Allergy Hives Verified 09/26/17 09:00 aspirin AdvReac Ringing in Verified 09/26/17 09:00 the Ears tramadol AdvReac Headache Verified 09/26/17 09:00 Home Meds: Home Meds Ibuprofen 800 mg PO TID PRN 11/02/15 [History] Mometasone Furoate [Nasonex] 1 spray NASBOTH DAILY 11/02/15 [History] Albuterol [Ventolin HFA] 1 puff INH Q4H PRN 11/22/16 [History] Gabapentin [Neurontin] 600 mg PO QID 11/22/16 [History] Past Medical History HEENT History: Reports: Allergic Rhinitis, Impaired Vision Other HEENT History: wears glasses Respiratory History: Reports: Bronchitis, Recurrent 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: Reports: GERD 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 History: Reports: 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: Musculoskeletal History: Reports: Back Pain, Chronic, Fracture, Other (See Below ) Other Musculoskeletal History: f/u ACL repair Neurological History: Reports: Concussion Psychiatric History: Reports: ADHD, Anxiety, Depression, Learning Disability, Mood Swings, Panic Attack, PTSD Endocrine/Metabolic History: Reports: Other (See Below) Other Endocrine/Metabolic History: calcium deficiency Dermatologic History: Reports: Eczema - Infectious Disease History Infectious Disease History: Reports: Chicken Pox - Past Surgical History Female Surgical History: Reports: Tubal Ligation Other Musculoskeletal Surgeries/Procedures:: knee surgery acl repair 12/25/16 cadaver graft Social & Family History - Family History Family Medical History: Noncontributory - Tobacco Use Smoking Status *Q: Light Tobacco Smoker Years of Tobacco use: 27 Packs/Tins Daily: 0.5 - Caffeine Use Caffeine Use: Reports: Energy Drinks - Recreational Drug Use Recreational Drug Use: Yes Recreational Drug Type: Reports: Marijuana/Hashish Recreational Drug Use Frequency: Weekly - Living Situation & Occupation Living situation: Reports: with Family Review of Systems - Review of Systems Review Of Systems: See Below Constitutional: Reports: No Symptoms Eyes: Reports: No Symptoms Ears: Reports: No Symptoms Nose: Reports: No Symptoms Mouth/Throat: Reports: No Symptoms Respiratory: Reports: No Symptoms Cardiovascular: Reports: No Symptoms 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: Reports: No Symptoms Musculoskeletal: Reports: Other (pain in rt hand after a injury ) Skin: Reports: No Symptoms ED EXAM, GENERAL - Physical Exam Exam: See Below Free Text/Narrative:: 4 weeks ago the pt punched a wall and he has alot of pain in the rt hand. He, 4th and middle finger and small finger when moved caused severe pain in the metacarpal area . She states the pain has definitely gotten worse. She does not have swelling. Exam Limited By: No Limitations General Appearance: Alert, Anxious, Moderate Distress Extremities: Other ( rt hand is not swollen, she has normal pulses, thecolor of the hand is normal. The repeat xray did not reveal any fractures that are healing. ) Neurological: Alert, Oriented, Normal Cognition Course - Vital Signs Last Recorded V/S: Last Vital Signs Temp 36.6 C 09/26/17 08:59 Pulse 104 H 09/26/17 08:59 Resp 16 09/26/17 08:59 BP 144/97 H 09/26/17 08:59 Pulse Ox 97 09/26/17 08:59 - Orders/Labs/Meds Orders: Active Orders 24 hr Category Date Time Status Hand Comp Min 3V Rt [CR] Stat Exams 09/26/17 09:14 Ordered Departure - Departure Time of Disposition: 09:44 Disposition: Home, Self-Care 01 Condition: Fair Clinical Impression: Hand pain, right - Discharge Information Referrals: PCP,None [Primary Care Provider] - Forms: ED Department Discharge Care Plan Goals: soak hand in warm water bid, do range of motion on the hand. Continue motrin 800mg tid, appt with ortho, ,norco5/325 q6h prn for pain#6 - My Orders Last 24 Hours: My Active Orders 09/26/17 09:14 Hand Comp Min 3V Rt [CR] Stat - Assessment/Plan Last 24 Hours: My Active Orders 09/26/17 09:14 Hand Comp Min 3V Rt [CR] Stat
--- NOTE | 2017-09-26 09:43 | CR ---
Hand Comp Min 3V Rt INDICATION: severe pain in rt hand COMPARISON: 08/29/2017 FINDINGS: 3 views. No fracture, dislocation, or other acute bony abnormality. Old ulnar styloid f racture. If symptoms persist, consider MR.
== END 2017-09-26 10:12 | disposition home or self-care (01) ==
LOC: JP.ED 08:36
DX: M79.641 Pain in right hand (principal); F17.210 Nicotine dependence, cigarettes, uncomplicated; F41.9 Anxiety disorder, unspecified; F32.9 Major depressive disorder, single episode, unspecified; K21.9 Gastro-esophageal reflux disease without esophagitis; Z79.899 Other long term (current) drug therapy; Z88.6 Allergy status to analgesic agent; Z88.5 Allergy status to narcotic agent; Z88.8 Allergy status to other drugs, medicaments and biological substances; W22.8XXA Striking against or struck by other objects, initial encounter
CPT/HCPCS: 73130-26-RT; 73130-RT; 99283

== ENCOUNTER 2018-06-26 12:34 | Emergency (ER) | payer MEDICAID ==
[2018-06-26 13:10] VITALS: BP 122/92
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
== END 2018-06-26 14:27 | disposition home or self-care (01) ==
LOC: JP.ED 12:34
DX: S00.83XA Contusion of other part of head, initial encounter (principal); F17.210 Nicotine dependence, cigarettes, uncomplicated; K21.9 Gastro-esophageal reflux disease without esophagitis; Z79.899 Other long term (current) drug therapy; Z88.6 Allergy status to analgesic agent; Z88.5 Allergy status to narcotic agent; Z88.8 Allergy status to other drugs, medicaments and biological substances; Y04.0XXA Assault by unarmed brawl or fight, initial encounter
CPT/HCPCS: 99283

== ENCOUNTER 2018-07-20 18:18 | Emergency (ER) | payer MEDICAID ==
[2018-07-20] MEDS ORDERED: Acetaminophen 500 MG Tab PO ONE (19:13)
[2018-07-20] MEDS ORDERED: Ketorolac 30 MG/ML SDV IM ONE (19:18)
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
[2018-07-20 19:37] VITALS: BP 138/98
[2018-07-20] MEDS ORDERED: Sodium Chloride 0.9% 10 ML Syringe FLUSH PRN (20:20)
[2018-07-20] MEDS ORDERED: Iopamidol 612 MG/ML 100 ML Bottle IV SCH (20:30)
[2018-07-20] MEDS ORDERED: Sodium Chloride 0.9% 80 ML IV SCH (20:30)
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
[2018-07-20] MEDS ORDERED: HYDROmorphone 0.5 MG/0.5 ML Syringe IVPUSH ONE (21:13)
[2018-07-20] MEDS ORDERED: Tamsulosin 0.4 MG Cap.ER PO ONE (21:18)
== END 2018-07-20 21:44 | disposition home or self-care (01) ==
LOC: JP.ED 18:18
DX: N13.2 Hydronephrosis with renal and ureteral calculous obstruction (principal); K21.9 Gastro-esophageal reflux disease without esophagitis; F41.9 Anxiety disorder, unspecified; F32.9 Major depressive disorder, single episode, unspecified; Z88.6 Allergy status to analgesic agent; Z88.5 Allergy status to narcotic agent; Z88.8 Allergy status to other drugs, medicaments and biological substances; F17.210 Nicotine dependence, cigarettes, uncomplicated; Z79.899 Other long term (current) drug therapy; Z98.51 Tubal ligation status
CPT/HCPCS: 36415; 74177; 80048; 80305; 81001; 85027; 87086; 96372; 96374; 99284; A9270; J1170; J1885; J7030; Q9967

== ENCOUNTER 2018-10-02 17:39 | Emergency (ER) | payer MEDICAID ==
[2018-10-02 19:48] VITALS: BP 145/86
[2018-10-02] MEDS ORDERED: Ketorolac 60 MG/2 ML SDV IM ONE ×2 (20:28→20:50)
[2018-10-02] MEDS ORDERED: Ciprofloxacin 500 MG Tab PO ONE (21:51)
--- NOTE | 2018-10-02 21:55 | EDM.PDOC ---
ED HPI GENERAL MEDICAL PROBLEM - General Chief Complaint: 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 Problem Stated Complaint: STONES Time Seen by Provider: 10/02/18 21:20 Source of Information: Reports: Patient History Limitations: Reports: No Limitations - History of Present Illness INITIAL COMMENTS - FREE TEXT/NARRATIVE: 38-year-old female who has been having bilateral flank pain for 5 days. Left side is worse than the right with pain level 9/10. It is made worse with bending over and movement. She sometimes describes it as an ache and sometimes sharp. She does have a prior history of ureteral colic however she also has a history of muscular back pain and urinary tract infections. She does complain of dysuria. She is status post tubal ligation. Right Lower Back Pain Score (Numeric/FACES): 5 left sided back pain Pain Score (Numeric/FACES): 8 - Related Data Allergies Allergy/AdvReac Type Severity Reaction Status Date / Time buspirone [From BuSpar] Allergy Other Verified 10/02/18 20:04 codeine Allergy Hives Verified 10/02/18 20:04 lamotrigine [From Lamictal] Allergy Rash Verified 10/02/18 20:04 aspirin AdvReac Ringing in Verified 10/02/18 20:04 the Ears tramadol AdvReac Headache Verified 10/02/18 20:04 Home Meds: Home Meds Ibuprofen 800 mg PO TID PRN 11/02/15 [History] Mometasone Furoate [Nasonex] 1 spray NASBOTH DAILY 11/02/15 [History] Albuterol [Ventolin HFA] 1 puff INH Q4H PRN 11/22/16 [History] Gabapentin [Neurontin] 600 mg PO TID 11/22/16 [History] ALPRAZolam [Alprazolam] 1 mg PO TID PRN 03/16/18 [History] Omeprazole 20 mg PO DAILY 03/16/18 [History] Venlafaxine HCl [Venlafaxine ER] 75 mg PO DAILY 03/16/18 [History] Venlafaxine HCl [Venlafaxine ER] 150 mg PO DAILY 04/22/18 [History] Cyclobenzaprine HCl 10 mg PO ASDIRECTED PRN 05/10/18 [History] Tamsulosin HCl [Flomax] 0.4 mg PO DAILY #6 cap.er.24h 07/20/18 [Rx] Past Medical History HEENT History: Reports: Allergic Rhinitis, Impaired Vision Other HEENT History: wears glasses Respiratory History: Reports: Asthma, Bronchitis, Recurrent 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: Reports: GERD 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 History: Reports: Renal Calculus, 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: Musculoskeletal History: Reports: Back Pain, Chronic, Fracture, Other (See Below ) Other Musculoskeletal History: f/u ACL repair Neurological History: Reports: Concussion Psychiatric History: Reports: ADHD, Anxiety, Depression, Learning Disability, Mood Swings, Panic Attack, PTSD, Suicidal Ideation Endocrine/Metabolic History: Reports: Other (See Below) Other Endocrine/Metabolic History: calcium deficiency Dermatologic History: Reports: Eczema - Infectious Disease History Infectious Disease History: Reports: Chicken Pox - Past Surgical History Head Surgeries/Procedures: Reports: None Female Surgical History: Reports: Tubal Ligation Musculoskeletal Surgical History: Reports: Other (See Below) Other Musculoskeletal Surgeries/Procedures:: knee surgery acl repair 12/25/16 cadaver graft Social & Family History - Family History Family Medical History: Noncontributory - Tobacco Use Smoking Status *Q: Current Every Day Smoker Years of Tobacco use: 28 Packs/Tins Daily: 0.5 - Caffeine Use Caffeine Use: Reports: Coffee, Soda - Recreational Drug Use Recreational Drug Use: Yes Drug Use in Last 12 Months: Yes Recreational Drug Type: Reports: Marijuana/Hashish - Living Situation & Occupation Living situation: Reports: with Family ED ROS GENERAL - Review of Systems Review Of Systems: See Below Constitutional: Denies: Fever, Chills, Weakness Respiratory: Reports: No Symptoms Cardiovascular: Reports: No Symptoms GI/Abdominal: Denies: Abdominal Pain, Diarrhea, Nausea : Reports: Dysuria, Frequency, Hematuria, Pain Musculoskeletal: Reports: Back Pain Neurological: Reports: No Symptoms. Denies: Numbness, Paresthesia, Weakness ED EXAM, GI/ABD - Physical Exam Exam: See Below Exam Limited By: No Limitations General Appearance: Alert, No Apparent Distress Respiratory/Chest: No Respiratory Distress, Lungs Clear Cardiovascular: Normal Peripheral Pulses, Regular Rate, Rhythm GI/Abdominal Exam: Normal Bowel Sounds, Soft, Non-Tender (Female) Exam: Other (Bilateral flank tenderness with percussion.) Back Exam: Paraspinal Tenderness Course - Vital Signs Last Recorded V/S: Last Vital Signs Temp 36.2 C 10/02/18 20:05 Pulse 84 10/02/18 20:05 Resp 16 10/02/18 20:05 BP 145/86 H 10/02/18 20:05 Pulse Ox 100 10/02/18 20:05 - Orders/Labs/Meds Labs: Laboratory Tests 10/02/18 10/02/18 10/02/18 Range/Units 19:43 20:39 20:39 WBC 8.1 (4.5-11.0) K/uL RBC 4.48 (3.30-5.50) M/uL Hgb 13.6 (12.0-15.0) g/dL Hct 40.9 (36.0-48.0) % MCV 91 (80-98) fL MCH 30 (27-31) pg MCHC 33 (32-36) % Plt Count 226 (150-400) K/uL Neut % (Auto) 49 (36-66) % Lymph % (Auto) 41 (24-44) % [place] % (Auto) 7 H (2-6) % Eos % (Auto) 2 (2-4) % Baso % (Auto) 1 (0-1) % Sodium 139 L (140-148) mmol/L Potassium 3.8 (3.6-5.2) mmol/L Chloride 103 (100-108) mmol/L Carbon Dioxide 28 (21-32) mmol/L Anion Gap 11.8 (5.0-14.0) mmol/L BUN 13 (7-18) mg/dL Creatinine 0.7 (0.6-1.0) mg/dL Est Cr Clr Drug Dosing 85.34 mL/min Estimated GFR (MDRD) > 60 (>60) Glucose 90 (74-106) mg/dL Lactic Acid (0.4-2.0) mmol/L Calcium 9.0 (8.5-10.1) mg/dL Urine Color [place] Urine Appearance Cloudy Urine pH 6.0 (4.5-8.0) Ur Specific [place] 1.015 (1.008-1.030) Urine Protein Trace (NEGATIVE) mg/dL Urine Glucose (UA) Normal (NEGATIVE) mg/dL Urine Ketones Negative (NEGATIVE) mg/dL Urine Occult Blood Moderate (NEGATIVE) Urine Nitrite Negative (NEGATIVE) Urine Bilirubin Negative (NEGATIVE) Urine Urobilinogen 1 (NORMAL) mg/dL Ur Leukocyte Esterase Moderate (NEGATIVE) Urine RBC 5-10 H (0-5) Urine WBC 20-30 H (0-5) Ur Epithelial Cells Few Amorphous Sediment Few Urine Bacteria Moderate Urine Mucus Few Urine Other See note Urinalysis Comment See note 10/02/18 Range/Units 20:39 WBC (4.5-11.0) K/uL RBC (3.30-5.50) M/uL Hgb (12.0-15.0) g/dL Hct (36.0-48.0) % MCV (80-98) fL MCH (27-31) pg MCHC (32-36) % Plt Count (150-400) K/uL Neut % (Auto) (36-66) % Lymph % (Auto) (24-44) % [place] % (Auto) (2-6) % Eos % (Auto) (2-4) % Baso % (Auto) (0-1) % Sodium (140-148) mmol/L Potassium (3.6-5.2) mmol/L Chloride (100-108) mmol/L Carbon Dioxide (21-32) mmol/L Anion Gap (5.0-14.0) mmol/L BUN (7-18) mg/dL Creatinine (0.6-1.0) mg/dL Est Cr Clr Drug Dosing mL/min Estimated GFR (MDRD) (>60) Glucose (74-106) mg/dL Lactic Acid 1.3 (0.4-2.0) mmol/L Calcium (8.5-10.1) mg/dL Urine Color Urine Appearance Urine pH (4.5-8.0) Ur Specific [place] (1.008-1.030) Urine Protein (NEGATIVE) mg/dL Urine Glucose (UA) (NEGATIVE) mg/dL Urine Ketones (NEGATIVE) mg/dL Urine Occult Blood (NEGATIVE) Urine Nitrite (NEGATIVE) Urine Bilirubin (NEGATIVE) Urine Urobilinogen (NORMAL) mg/dL Ur Leukocyte Esterase (NEGATIVE) Urine RBC (0-5) Urine WBC (0-5) Ur Epithelial Cells Amorphous Sediment Urine Bacteria Urine Mucus Urine Other Urinalysis Comment Meds: Medications Discontinued Medications Generic Name Dose Route Start Last Admin Trade Name Freq PRN Reason Stop Dose Admin Ciprofloxacin 500 mg 10/02/18 21:51 10/02/18 22:01 Ciprofloxacin Hcl PO 10/02/18 21:52 500 mg ONETIME ONE Administration Ketorolac Tromethamine 60 mg 10/02/18 20:50 10/02/18 21:01 Toradol IM 10/02/18 20:51 60 mg ONETIME ONE Administration Departure - Departure Time of Disposition: 22:00 Disposition: Home, Self-Care 01 Condition: Fair Clinical Impression: Pyelonephritis, History of trichomonal urethritis - Discharge Information *PRESCRIPTION DRUG MONITORING PROGRAM REVIEWED*: No *COPY OF PRESCRIPTION DRUG MONITORING REPORT IN PATIENT YEISON: No Instructions: Pyelonephritis, Adult Referrals: Lauryn Esparza RN [Primary Care Provider] - Forms: ED Department Discharge Additional Instructions: Cipro prescribed for 10 days. [id number] analgesics as needed for pain. Also prescribed metronidazole 500 mg twice a day 7 days for Trichomonas infection. Care Plan Goals: Follow-up if symptoms worsen or are not resolved in 10 days. - Problem List & Annotations (1) Pyelonephritis SNOMED Code(s): 52675669 Code(s): N12 - TUBULO-INTERSTITIAL NEPHRITIS, NOT SPCF ACUTE OR CHRONIC Status: Acute (2) History of trichomonal urethritis SNOMED Code(s): 627538979 Code(s): Z86.19 - PERSONAL HISTORY OF OTHER INFECTIOUS AND PARASITIC DISEASES Status: Acute
== END 2018-10-02 22:00 | disposition home or self-care (01) ==
LOC: JP.ED 17:39
DX: N12 Tubulo-interstitial nephritis, not specified as acute or chronic (principal); Z86.19 Personal history of other infectious and parasitic diseases; F17.210 Nicotine dependence, cigarettes, uncomplicated; K21.9 Gastro-esophageal reflux disease without esophagitis; J45.909 Unspecified asthma, uncomplicated; F41.9 Anxiety disorder, unspecified; F32.9 Major depressive disorder, single episode, unspecified; Z79.899 Other long term (current) drug therapy; Z88.6 Allergy status to analgesic agent; Z88.8 Allergy status to other drugs, medicaments and biological substances
CPT/HCPCS: 36415; 80048; 81001; 83605; 85025; 96372; 99284; A9270; J1885

== ENCOUNTER 2019-05-06 18:16 | Emergency (ER) | payer MEDICAID ==
[2019-05-06 18:46] VITALS: BP 138/88; PULSE 92
--- NOTE | 2019-05-06 19:17 | EDM.PDOC ---
ED HPI GENERAL MEDICAL PROBLEM - General Chief Complaint: Upper Extremity Injury/Pain Stated Complaint: PAIN IN LT KNEE Time Seen by Provider: 05/06/19 19:08 Source of Information: Reports: Patient, Family, Old Records, RN Notes Reviewed History Limitations: Reports: No Limitations - History of Present Illness INITIAL COMMENTS - FREE TEXT/NARRATIVE: 38-year-old female presents emergency department today complaint of knee pain, she is scheduled for a revision of her ACL repair first part of May did visit with orthopedics today unfortunately the notes are not available. She tells me the orthopedic provider Dr. Escobar was going to provide pain medication. She states the only thing that works for her is hydrocodone. Left Knee Pain Score (Numeric/FACES): 0 - Related Data Allergies Allergy/AdvReac Type Severity Reaction Status Date / Time buspirone [From BuSpar] Allergy Other Verified 10/02/18 20:04 codeine Allergy Hives Verified 10/02/18 20:04 lamotrigine [From Lamictal] Allergy Rash Verified 10/02/18 20:04 aspirin AdvReac Ringing in Verified 10/02/18 20:04 the Ears tramadol AdvReac Headache Verified 10/02/18 20:04 Home Meds: Home Meds Ibuprofen 800 mg PO TID PRN 11/02/15 [History] Gabapentin [Neurontin] 600 mg PO TID 11/22/16 [History] ALPRAZolam [Alprazolam] 1 mg PO TID PRN 03/16/18 [History] Omeprazole 20 mg PO DAILY 03/16/18 [History] Venlafaxine HCl [Venlafaxine ER] 75 mg PO DAILY 03/16/18 [History] Venlafaxine HCl [Venlafaxine ER] 150 mg PO DAILY 04/22/18 [History] Past Medical History HEENT History: Reports: Allergic Rhinitis, Impaired Vision Other HEENT History: wears glasses Respiratory History: Reports: Asthma, Bronchitis, Recurrent 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: Reports: GERD 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 History: Reports: Renal Calculus, 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: Musculoskeletal History: Reports: Back Pain, Chronic, Fracture, Other (See Below ) Other Musculoskeletal History: f/u ACL repair Neurological History: Reports: Concussion Psychiatric History: Reports: ADHD, Anxiety, Depression, Learning Disability, Mood Swings, Panic Attack, PTSD, Suicidal Ideation Endocrine/Metabolic History: Reports: Other (See Below) Other Endocrine/Metabolic History: calcium deficiency Hematologic History: Reports: None Immunologic History: Reports: None Oncologic (Cancer) History: Reports: None Dermatologic History: Reports: Eczema - Infectious Disease History Infectious Disease History: Reports: Chicken Pox - Past Surgical History Head Surgeries/Procedures: Reports: None GI Surgical History: Reports: None Female Surgical History: Reports: Tubal Ligation Musculoskeletal Surgical History: Reports: Other (See Below) Other Musculoskeletal Surgeries/Procedures:: knee surgery acl repair 12/25/16 cadaver graft Social & Family History - Family History Family Medical History: Noncontributory - Tobacco Use Smoking Status *Q: Current Every Day Smoker Years of Tobacco use: 28 Packs/Tins Daily: 0.5 - Caffeine Use Caffeine Use: Reports: Coffee - Recreational Drug Use Recreational Drug Use: No - Living Situation & Occupation Living situation: Reports: with Family Review of Systems - Review of Systems Review Of Systems: See Below Musculoskeletal: Reports: Joint Pain (Knee pain) ED EXAM, GENERAL - Physical Exam Exam: See Below Exam Limited By: No Limitations General Appearance: Alert, Mild Distress, Other (Tearful) Respiratory/Chest: No Respiratory Distress Course - Vital Signs Last Recorded V/S: Last Vital Signs Temp 98.3 F 05/06/19 18:45 Pulse 92 05/06/19 18:45 Resp BP 138/88 05/06/19 18:45 Pulse Ox Departure - Departure Time of Disposition: 19:23 Disposition: Home, Self-Care 01 Condition: Fair Clinical Impression: Left knee pain Qualifiers: Chronicity: chronic Qualified Code(s): M25.562 - Pain in left knee; G89.29 - Other chronic pain - Discharge Information Instructions: Knee Pain, Adult Referrals: Lauryn Esparza RN [Primary Care Provider] - Forms: ED Department Discharge Additional Instructions: Use hydrocodone for pain control start with 1 tablet may increase to 2 tablets if needed please call Dr. Escobar in the morning for further evaluation on the plan, call or return to the emergency department for worsening of symptoms Sepsis Event Note - Evaluation Sepsis Screening Result: No Definite Risk - Focused Exam Vital Signs: Vital Signs Temp Pulse BP 05/06/19 18:45 98.3 F 92 138/88 Date Exam was Performed: 05/06/19 Time Exam was Performed: 19:22 - Assessment/Plan Plan: Assessment Acuity = acute on chronic Site and laterality = left knee pain Etiology = unknown Manifestations = none Location of injury = Home Lab values = none, I did review the x-rays that were performed today as well unfortunately no radiology read is available at this time Plan Prescription written for hydrocodone 5/325 1 to 2 tablets p.o. every 4 6 hours as needed total #4 she will contact her orthopedics provider in the morning This note was dictated using [employer] voice recognition software please call with any questions on syntax or grammar.
== END 2019-05-06 19:48 | disposition home or self-care (01) ==
LOC: JP.ED 18:16
DX: G89.29 Other chronic pain (principal); M25.562 Pain in left knee; J45.909 Unspecified asthma, uncomplicated; K21.9 Gastro-esophageal reflux disease without esophagitis; F32.9 Major depressive disorder, single episode, unspecified; F41.0 Panic disorder [episodic paroxysmal anxiety]; F17.210 Nicotine dependence, cigarettes, uncomplicated; Z88.5 Allergy status to narcotic agent; Z88.8 Allergy status to other drugs, medicaments and biological substances; Z79.899 Other long term (current) drug therapy
CPT/HCPCS: 99283

== ENCOUNTER 2019-05-24 07:41 | Observation (INO) | payer MEDICAID ==
[~2019-05-24 07:41] MED LIST: Bupivacaine 0.5% 30 ML SDV ONE
[2019-05-24] MEDS ORDERED: Nozin Nasal Sanitizer NASBOTH ONE (08:15)
[2019-05-24] MEDS ORDERED: ceFAZolin 2 GM in Sodium Chloride 0.9% 50 ML IV ONE (08:15)
[2019-05-24] MEDS ORDERED: Lactated Ringers 1,000 ML IV SCH (08:15)
[2019-05-24] MEDS ORDERED: Neostigmine Methylsulfate 1 MG/ML 5 ML Syringe ONE (10:01)
[2019-05-24] MEDS ORDERED: Glycopyrrolate 0.2 MG/ML 5 ML MDV ONE (10:01)
[2019-05-24] MEDS ORDERED: Propofol 200 MG/20 ML SDV ONE (10:01)
[2019-05-24] MEDS ORDERED: Rocuronium 50 MG/5 ML Vial ONE (10:01)
[2019-05-24] MEDS ORDERED: Dexamethasone 4 MG/ML SDV ONE (10:01)
[2019-05-24] MEDS ORDERED: Ondansetron 4 MG/2 ML SDV ONE (10:01)
[2019-05-24] MEDS ORDERED: fentaNYL 250 MCG/5 ML SDV ONE ×2 (10:01→11:16)
[2019-05-24] MEDS ORDERED: Labetalol 20 MG/4 ML Syringe ONE (12:34)
[2019-05-24] MEDS ORDERED: Lactated Ringers 1,000 ML ONE (12:51)
[2019-05-24] MEDS ORDERED: fentaNYL 100 MCG/2 ML SDV ONE (13:43)
[2019-05-24] MEDS ORDERED: Morphine 2 MG/ML SYRINGE IVPUSH ONE (14:21)
[2019-05-24] MEDS ORDERED: Ketorolac 60 MG/2 ML SDV IM ONE (15:45)
[2019-05-24] MEDS ORDERED: Morphine 2 MG/ML SYRINGE IVPUSH PRN (16:49)
[2019-05-24] MEDS ORDERED: Ketorolac 30 MG/ML SDV IVPUSH PRN (16:49)
[2019-05-24] MEDS ORDERED: Acetaminophen 325 MG Tab PO PRN (16:49)
[2019-05-24] MEDS ORDERED: Acetaminophen/HYDROcodone 325-5 MG Tab PO PRN (16:49)
[2019-05-24] MEDS ORDERED: Albuterol 8 GM Inhaler INH PRN (16:58)
[2019-05-24] MEDS: Acetaminophen/oxyCODONE 325-5 MG Tab PO PRN ×2 (17:41→22:19)
[2019-05-24] MEDS: Nicotine 21 MG/24 Hr Patch TRDERM SCH (17:43)
[2019-05-24] MEDS: Fluticasone-Salmeterol 113-14 MCG Powder Inhalant INH SCH (20:09)
[2019-05-24] MEDS: Gabapentin 300 MG Cap PO SCH (20:10)
[2019-05-24] MEDS: ALPRAZolam 0.5 MG Tab PO PRN (22:18)
[2019-05-25] MEDS: Acetaminophen/oxyCODONE 325-5 MG Tab PO PRN ×3 (03:08→14:50)
[2019-05-25] MEDS: Fluticasone-Salmeterol 113-14 MCG Powder Inhalant INH SCH (07:02)
[2019-05-25] MEDS: ALPRAZolam 0.5 MG Tab PO PRN (07:30)
[2019-05-25] MEDS ORDERED: Pantoprazole 40 MG Tab.CR PO SCH (07:30)
[2019-05-25] MEDS: Venlafaxine 75 MG Cap.ER PO SCH ×2 (07:37→08:23)
[2019-05-25] MEDS: Gabapentin 300 MG Cap PO SCH ×3 (07:38→13:39)
[2019-05-25] MEDS: Tamsulosin 0.4 MG Cap.ER PO SCH ×2 (07:39→08:23)
[2019-05-25] MEDS: Nicotine 21 MG/24 Hr Patch TRDERM SCH ×2 (07:42→08:24)
[2019-05-25 07:48] VITALS: BP 115/81; PULSE 76
--- NOTE | 2019-05-25 12:08 | PCM.DCSUM1 ---
Discharge Summary - Hospital Course HPI Initial Comments: 38 year old admitted after ACL revision for pain control. Diagnosis: Stroke: No Modified Harnett Scale: No Symptoms at All Modified Harnett Scale Score: 0 - Discharge Data Discharge Date: 05/25/19 Discharge Disposition: Home, Self-Care 01 Condition: Good - Referral to Home Health Primary Care Physician: Lauryn Esparza RN - Discharge Diagnosis/Problem(s) (1) Tear of meniscus of left knee SNOMED Code(s): 456479739 ICD Code: S83.207A - UNSP TEAR OF UNSP MENISCUS, CURRENT INJURY, LEFT KNEE, INIT Status: Acute Current Visit: Yes Qualifiers: Tear current or old: current Encounter type: subsequent encounter Meniscus of knee: lateral Meniscus tear of knee type: complex Qualified Code (s): S83.272D - Complex tear of lateral meniscus, current injury, left knee, subsequent encounter (2) Chondromalacia of knee SNOMED Code(s): 49558389, 485745036 ICD Code: M94.269 - CHONDROMALACIA, UNSPECIFIED KNEE Status: Acute Current Visit: Yes Problem Details: lateral compartment and PF joint Qualifiers: Laterality: left Qualified Code(s): M94.262 - Chondromalacia, left knee (3) Status post arthroscopy of left knee SNOMED Code(s): 034456426, 183242463, 826899042 ICD Code: Z98.890 - OTHER SPECIFIED POSTPROCEDURAL STATES Status: Acute Current Visit: Yes Problem Details: Revision and partical meniscectomy (4) ACL graft tear SNOMED Code(s): 131819981, 017011111, 907515104 ICD Code: T84.89XA - OTH COMP OF INTERNAL ORTHOPEDIC PROSTH DEV/GRFT, INIT Status: Acute Current Visit: No Problem Details: Chronic tear of ACL graft Qualifiers: Encounter type: initial encounter Qualified Code(s): T84.89XA - Other specified complication of internal orthopedic prosthetic devices, implants and grafts, initial encounter (5) Left knee pain SNOMED Code(s): 98719063 ICD Code: M25.562 - PAIN IN LEFT KNEE Status: Acute Current Visit: No Qualifiers: Chronicity: chronic Qualified Code(s): M25.562 - Pain in left knee; G89.29 - Other chronic pain - Patient Summary/Data Operative Procedure(s) Performed: Arthroscopically assisted ACL revision, partial lateral meniscectomy and chondroplasty left knee Consults: Consultations 05/24/19 16:49 PT Evaluation and Treatment [CONS] Routine Please Evaluate and Treat. PT Reason for Consult: Post op Ortho Surgery Knee Pending Discharge: Yes, 1- 2 days Special Instructions: Schedule first outpatient PT appointment in 3-5 day post discharge. This query below is only for informational purposes and is not editable. Hospital Course: 38 year female with history of previous ACL reconstruction admitted for revision of failed graft. Found to have complex tear of lateral meniscus and significant chondromalacia of lateral compartment of knee. Admitted for pain control post-op. Had some nausea last night. Stomach ok this AM. Has been up to bathroom. Plan discharge today and follow up with PT. She may weight bear as tolerated as with brace and crutches or walker. - Patient Instructions Diet: Usual Diet as Tolerated Activity: Apply Ice, As Tolerated Showering/Bathing: Shower in AM Notify Provider of: Fever, Increased Pain, Swelling and Redness, Drainage, Nausea and/or Vomiting - Discharge Plan *PRESCRIPTION DRUG MONITORING PROGRAM REVIEWED*: No *COPY OF PRESCRIPTION DRUG MONITORING REPORT IN PATIENT YEISON: No Prescriptions/Med Rec: Ibuprofen 800 mg PO TID PRN 30 Days #90 tablet PRN Reason: Pain (Mild 1-3) Home Medications: Home Meds Ibuprofen 800 mg PO TID PRN 11/02/15 [History] Gabapentin [Neurontin] 600 mg PO TID 11/22/16 [History] ALPRAZolam [Alprazolam] 1 mg PO TID PRN 03/16/18 [History] Omeprazole 20 mg PO DAILY 03/16/18 [History] Venlafaxine HCl [Venlafaxine ER] 225 mg PO DAILY 04/22/18 [History] Albuterol [Ventolin HFA] 2 puff IH Q4HR 05/20/19 [History] Fluticasone/Salmeterol [Advair 250-50 Diskus] 1 each IH BID 05/20/19 [History] Hydrocodone/Acetaminophen [Hydrocodon-Acetaminophen 5-325] 1 - 2 each PO Q8HR [History] Prazosin HCl [Prazosin] 8 - 10 mg PO BEDTIME PRN 05/20/19 [History] Tamsulosin [Tamsulosin 24 Hr] 0.4 mg PO DAILY 05/20/19 [History] Ibuprofen 800 mg PO TID PRN 30 Days #90 tablet 05/24/19 [Rx] Oxygen Therapy Mode: Room Air Patient Handouts: Preventing Constipation After Surgery Referrals: Horace Escobar MD [Physician] - 06/08/19 2:15 pm (You have a follow up appointment with Dr. Escobar on 06/08/19 at 2:15 at the ortho clinic.) Physical Therapy,Template [Physical Therapist] - 05/28/19 9:00 am (Pllease arrive 30 minutes early to register for your Pyiscal Therapy appointment.) - Discharge Summary/Plan Comment DC Time >30 min.: No - General Info Date of Service: 05/25/19 Functional Status: Reports: Pain Controlled, Tolerating Diet - Review of Systems General: Reports: No Symptoms HEENT: Reports: No Symptoms Pulmonary: Reports: No Symptoms Cardiovascular: Reports: No Symptoms Gastrointestinal: Reports: No Symptoms 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: Reports: No Symptoms Musculoskeletal: Reports: No Symptoms Skin: Reports: No Symptoms Neurological: Reports: No Symptoms Psychiatric: Reports: No Symptoms - Patient Data Vitals - Most Recent: Last Vital Signs Temp 37.3 C 05/25/19 07:00 Pulse 76 05/25/19 07:00 Resp 16 05/25/19 07:00 BP 115/81 05/25/19 07:00 Pulse Ox 97 05/25/19 07:00 Weight - Most Recent: 79.832 kg I&O - Last 24 hours: Intake & Output 05/24/19 05/25/19 05/25/19 22:59 06:59 14:59 Intake Total 600 1000 Output Total 300 Balance 300 1000 Med Orders - Current: Current Medications Acetaminophen (Tylenol) 650 mg PO Q4H PRN PRN Reason: Pain/Fever Hydrocodone Bitart/Acetaminophen ([place] 325-5 Mg) 1 tab PO Q3H PRN PRN Reason: Pain (mild 1-3) Last Admin: 05/25/19 07:36 Dose: 1 tab Albuterol (Ventolin Hfa) 0 gm INH Q4H PRN PRN Reason: Shortness of Breath Alprazolam (Xanax) 1 mg PO TID PRN PRN Reason: Anxiety Last Admin: 05/24/19 22:18 Dose: 1 mg Gabapentin (Neurontin) 600 mg PO TID [facility] Last Admin: 05/25/19 08:24 Dose: Not Given Lactated Ringer's (Ringers, Lactated) 1,000 mls @ 75 mls/hr IV ASDIRECTED [facility] Last Admin: 05/24/19 08:58 Dose: 75 mls/hr Ketorolac Tromethamine (Toradol) 30 mg IVPUSH Q8H PRN PRN Reason: Pain Morphine Sulfate (Morphine) 4 mg IVPUSH Q1H PRN PRN Reason: Breakthrough Pain Nicotine (Habitrol) 21 mg TRDERM DAILY [facility] Last Admin: 05/25/19 08:24 Dose: Not Given Oxycodone/Acetaminophen (Percocet 325-5 Mg) 2 tab PO Q4H PRN PRN Reason: Pain (moderate 4-6) Last Admin: 05/25/19 10:31 Dose: 2 tab Pantoprazole Sodium (Protonix) 40 mg PO DAILY@0730 [facility] Last Admin: 05/25/19 07:37 Dose: 40 mg Prazosin HCl (Minpress) 8 - 10 mg PO BEDTIME PRN PRN Reason: [place]IGHT[place] Fluticasone/Salmeterol (Fluticasone-Salmeterol 113-14 Mcg Powder Inh) 1 puff INH BIDRT [facility] Last Admin: 05/25/19 07:02 Dose: 1 puff Tamsulosin HCl (Flomax) 0.4 mg PO DAILY [facility] Last Admin: 05/25/19 08:23 Dose: Not Given Venlafaxine HCl (Effexor Xr) 225 mg PO DAILY [facility] Last Admin: 05/25/19 08:23 Dose: Not Given Discontinued Medications Bandage/Support Products ( 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) 1 applic NASBOTH ONETIME ONE Stop: 05/24/19 08:16 Last Admin: 05/24/19 08:30 Dose: 1 applic Bupivacaine HCl (Marcaine 0.5%) Confirm Administered Dose 30 ml .ROUTE .STK-MED ONE Stop: 05/24/19 06:45 Last Admin: 05/24/19 11:06 Dose: 30 ml Dexamethasone (Dexamethasone) Confirm Administered Dose 4 mg .ROUTE .STK-MED ONE Stop: 05/24/19 10:02 Fentanyl (Sublimaze) Confirm Administered Dose 250 mcg .ROUTE .ST-MED ONE Stop: 05/24/19 10:02 Fentanyl (Sublimaze) Confirm Administered Dose 250 mcg .ROUTE .ST-MED ONE Stop: 05/24/19 11:17 Fentanyl (Sublimaze) Confirm Administered Dose 100 mcg .ROUTE .STK-MED ONE Stop: 05/24/19 13:44 Glycopyrrolate (Robinul) Confirm Administered Dose 1 mg .ROUTE .ST-MED ONE Stop: 05/24/19 10:02 Cefazolin Sodium 2 gm/ Sodium (Chloride) 50 mls @ 100 mls/hr IV ONETIME ONE Stop: 05/24/19 08:44 Last Admin: 05/24/19 10:19 Dose: 100 mls/hr Lactated Ringer's (Ringers, Lactated) Confirm Administered Dose 1,000 mls @ as directed .ROUTE .[facility]-MED ONE Stop: 05/24/19 12:52 Ketorolac Tromethamine (Toradol) 60 mg IM ONETIME ONE Stop: 05/24/19 15:46 Last Admin: 05/24/19 15:47 Dose: 60 mg Labetalol HCl (Normodyne) Confirm Administered Dose 20 mg .ROUTE .ST-MED ONE Stop: 05/24/19 12:35 Morphine Sulfate (Morphine) 4 mg IVPUSH ONETIME ONE Stop: 05/24/19 14:22 Last Admin: 05/24/19 14:30 Dose: 4 mg Neostigmine Methylsulfate (Neostigmine) Confirm Administered Dose 5 mg .ROUTE .[facility]-MED ONE Stop: 05/24/19 10:02 Ondansetron HCl (Zofran) Confirm Administered Dose 4 mg .ROUTE .ST-MED ONE Stop: 05/24/19 10:02 Propofol (Diprivan 20 Ml) Confirm Administered Dose 200 mg .ROUTE .ST-MED ONE Stop: 05/24/19 10:02 Rocuronium Vincent (Zemuron) Confirm Administered Dose 50 mg .ROUTE .[facility]-MED ONE Stop: 05/24/19 10:02 - Exam General: Reports: Alert, Oriented HEENT: Reports: Pupils Equal, Pupils Reactive, EOMI, Mucous Membr. Moist/[place] Neck: Reports: Supple Lungs: Reports: Clear to Auscultation, Normal Respiratory Effort Cardiovascular: Reports: Regular Rate, Regular Rhythm GI/Abdominal Exam: Soft, Non-Tender, No Distention (Female) Exam: Deferred Rectal (Female) Exam: Deferred Back Exam: Reports: Normal Inspection Extremities: Joint Swelling, Leg Pain, Limited Range of Motion Skin: Reports: Warm, Dry Wound/Incisions: Reports: Dressing Dry and Intact Neurological: Reports: No New Focal Deficit Psy/Mental Status: Reports: Alert, Normal Affect, Normal Mood
[2019-05-25] MEDS ORDERED: Prazosin 1 MG Cap PO PRN (21:00)
--- NOTE | 2019-06-02 19:39 | OR ---
DATE OF PROCEDURE: 05/24/2019 SURGEON: Horace Escobar MD PREOPERATIVE DIAGNOSIS: Failed anterior cruciate ligament graft, left knee, possible lateral meniscus tear. POSTOPERATIVE DIAGNOSIS: 1. Failed anterior cruciate ligament graft, left knee. 2. Complex tear, lateral meniscus. 3. Chondromalacia lateral femoral condyle, grade 3 and grade 4. 4. Chondromalacia, patellofemoral joint, grade 2. 5. Chondromalacia, lateral tibial plateau, grade 3. ANESTHESIA: General. INDICATIONS: Yelena is a 38-year-old female with a history of prior ACL tear and reconstruction using soft tissue allograft. She experienced failure of the graft and has had persistent instability and increasing pain over the past 2 years. Examination reveals a positive Luiz, positive drawer, positive pivot shift, as well as positive José laterally. She now presents for revision of the ACL and the treatment of meniscus as necessary. Risks, benefits, potential complications of the procedure were discussed. DESCRIPTION OF PROCEDURE: After adequate anesthesia was obtained, patient was placed supine with a tourniquet about the left upper thigh. Left leg was prepped and draped in a sterile fashion. Standard anterior, inferior, medial, lateral portals were established. Scope was introduced. Inspection of the joint revealed a grade 2 chondromalacia of the patellofemoral joint with a fissure running down the central portion of the trochlea and a small defect in the posterior aspect of the patella. Patella tracked well within the trochlear groove. Inspection of the medial joint revealed intact meniscus and articular cartilage with no damage. Intercondylar notch revealed a portion of the soft tissue graft to be in place, but essentially nonfunctional as it was quite loose. There was also bone fragment in the intercondylar notch, lateral wall. Inspection into the lateral compartment showed extensive degenerative change with a macerated tear of the lateral meniscus consisting of the midbody and into the posterior horn. Chondromalacia of the medial femoral condyle and tibial plateau were noted. Significant thinning on the plateau with grade 2 and 3 changes and significant irregularity on the femoral condyle with grade 3 and one area of grade 4 with exposed subchondral bone laterally. Shaver was introduced and a partial lateral meniscectomy was performed trimming the meniscus back to a stable margin. She still had a rim left anteriorly and laterally with minimal residual in the posterior horn and root. Chondroplasty was performed over the medial femoral condyle, removing all loose fragments and bevelling some of the flaps. Abrasion chondroplasty was performed in the base of the grade 4 lesion. This measured approximately 3 x 5 mm. Attention was then turned to the intercondylar notch. The old graft was debrided using combination of punch basket and shaver. The fragment from the lateral wall of the notch was loosened with a shaver and removed. Shaver was then used to expose the expansion mechanism of the AperFix device. On attempting to remove this, it was noted that the pin was significantly bent at the junction of the screw head and neck of the pin. This was able to be removed eventually without significant difficulty. Borders of the posterior wall were identified and was intact. Position of the original femoral tunnel was relatively good. Some changes were noted in the intercondylar spine region from the previous tibial tunnel. This was delineated with a shaver and probe. A Mitek aiming device was then placed. Incision was made over the medial tibial metaphysis. Aiming device was set at 55 mm and a guide pin was then advanced for the tibial tunnel. This was placed at a slightly different angle than her previous tunnel. Fixation device was not encountered with a guide pin. A 10- mm reamer was then placed over this and advanced into the joint. Some soft tissues were debrided with the reamer. These were cleaned from the joint with the shaver. A guide pin was then advanced through the tibial tunnel and up into the femoral tunnel, brought out through the anterolateral cortex and skin. A 10-mm reamer was then placed over this reaming in a push-pull fashion removing the soft tissue and portions of the AperFix device. This was reamed to a depth of 30 mm with good bone chatter. The loose fragments of the AperFix device were removed using combination of the shaver and graspers. Attention was then turned to the back table where a jennifer-patellar allograft had been thawed. This was then measured for 10 mm bone plugs on each end. These were cut down with oscillating saw and then trimmed and refined with a rongeur to fit through a 10 mm guide. Drill holes were placed in each bone plug and FiberWires were passed through the holes for the femoral tunnel and the FiberWire and Ethibond were placed in the holes for the tibial tunnel. This was then kept moist at the back table. Attention was returned to the knee and the 10 mm Rigidfix guide was then advanced over the guidewire into the femoral tunnel and sunk to a depth of 30 mm. Two cannulas were then drilled into the lateral femur and the guide was removed. The sutures from the bone plug for the femoral tunnel were passed through the eye of the guide pin. Guide pin was then pulled through with the sutures out the anterolateral skin. This was then used to advance the graft through the tibial tunnel and into the femoral tunnel. The scope was used to confirm the graft was placed to a depth of 30 mm. Holding slight traction on the sutures, drill was placed through the lateral cannulas and across the bone plug and transfixing pins were then tapped into position. Cannulas were removed. All loose fragments and bone fragments were removed with shaver. Knee was taken through several cycles of flexion and extension with tension on the graft. A 9 x 30 mm interference screw was then placed. This initially felt to have a decent fixation. A portion of the protruding bone plug was debrided with a rongeur. Upon evaluation with the scope, it was noted that the tip of the interference screw was just protruding into the joint through the tunnel. It was found that the screw had changed position somewhat within the tunnel due to the graft falling into the previous tibial tunnel. The interference screw was removed. A portion of the remaining bone fragments from the allograft were shaped into a bone plug and tapped into position in the tibial tunnel up into the area of the AperFix screw which had been removed. The Mitek interference screw was then replaced. Sutures through the graft were then secured around a 4.5 mm bone screw which was placed from anterior to posterior in the tibial metaphysis distal to the tunnel. The sutures were tied over this as a second point of fixation. The scope was reintroduced. Good tension was noted on the graft. Testing of the knee revealed a negative Uliz's and negative drawer. Solid endpoints were present with both of these. Knee was inspected once again at medial and lateral gutter, suprapatellar pouch, and no other loose fragments were noted. Knee was drained. Scope was withdrawn. Port sites and tibial incision were closed with 2-0 Vicryl and 3-0 Monocryl. Steri-Strips were applied. Knee was infiltrated with 0.25% Marcaine and a sterile dressing was applied. Knee was placed into a knee brace locked at 10 degrees of extension, and patient was taken from the operating room in stable condition. Horace Escobar MD /[id number] MTDD
== END 2019-05-25 18:12 | disposition home or self-care (01) ==
LOC: JP.SDS 07:41 → JP.MS 17:00
PROVIDERS: ADMIT Specialist; ATTEND Specialist
DX: T84.89XA Other specified complication of internal orthopedic prosthetic devices, implants and grafts, initial encounter (principal); T84.84XA Pain due to internal orthopedic prosthetic devices, implants and grafts, initial encounter; S83.272A Complex tear of lateral meniscus, current injury, left knee, initial encounter; M94.262 Chondromalacia, left knee; J45.909 Unspecified asthma, uncomplicated; K21.9 Gastro-esophageal reflux disease without esophagitis; F32.9 Major depressive disorder, single episode, unspecified; F41.9 Anxiety disorder, unspecified; F17.210 Nicotine dependence, cigarettes, uncomplicated; Z98.890 Other specified postprocedural states; Z88.8 Allergy status to other drugs, medicaments and biological substances; Z88.5 Allergy status to narcotic agent; Z88.6 Allergy status to analgesic agent; Z79.899 Other long term (current) drug therapy
CPT/HCPCS: 29881; 29888; 36415; 80048; 81025; 85027; 94640; 97161; 97530; 97535; A9270; C1713; G0378; J0690; J1100; J1885; J2270; J2405; J2704; J2710; J3010; J3490; J7050; J7120

== ENCOUNTER 2020-03-21 11:44 | Emergency (ER) | payer MEDICAID ==
[2020-03-21 12:22] VITALS: BP 145/89; PULSE 79
[2020-03-21] MEDS ORDERED: Baclofen 10 MG Tab PO ONE (13:09)
[2020-03-21] MEDS ORDERED: Ketorolac 60 MG/2 ML SDV IM ONE (13:10)
--- NOTE | 2020-03-21 14:18 | CR ---
Lumbar Spine Min 4V, Thoracic Spine 2V CLINICAL HISTORY: Fall, back pain FINDINGS: The vertebral body heights are maintained. No fracture or osseous lesion is seen. There is some minimal disc space narrowing at L5-S1. Impression: Minimal disc space narrowing L5-S1 No fracture or subluxation Thoracic Spine 2V CLINICAL HISTORY: Fall, back pain FINDINGS: The vertebral bodies and disc spaces are normal in height. There is no significant osteophytosis. The pedicles are unremarkable. Impression: No fracture or subluxation
[2020-03-21] MEDS ORDERED: Acetaminophen/HYDROcodone 325-5 MG Tab PO ONE (14:40)
--- NOTE | 2020-03-21 14:44 | EDM.PDOC ---
ED HPI GENERAL MEDICAL PROBLEM - General Chief Complaint: Back Pain or Injury Stated Complaint: LOWER AND MID BACK PAIN Time Seen by Provider: 03/21/20 12:20 Source of Information: Reports: Patient History Limitations: Reports: No Limitations - History of Present Illness Onset: Other (pt fell yesterday and landed on her back. She did try to go to work today and was not able to do that. ) Duration: Hour(s): Location: Reports: Back, Other ( lower t area. ) Associated Symptoms: Reports: No Other Symptoms - Related Data Allergies Allergy/AdvReac Type Severity Reaction Status Date / Time buspirone [From BuSpar] Allergy Change Verified 03/21/20 12:33 Mental Status codeine Allergy Hives Verified 03/21/20 12:33 lamotrigine [From Lamictal] Allergy Rash Verified 03/21/20 12:33 aspirin AdvReac Ringing in Verified 03/21/20 12:33 the Ears tramadol AdvReac Headache Verified 03/21/20 12:33 Home Meds: Home Meds Gabapentin [Neurontin] 900 mg PO TID 11/22/16 [History] ALPRAZolam [Alprazolam] 1 mg PO QID 03/16/18 [History] Omeprazole 20 mg PO DAILY 03/16/18 [History] Venlafaxine HCl [Venlafaxine ER] 225 mg PO DAILY 04/22/18 [History] Albuterol [Ventolin HFA] 2 puff IH Q4HR 05/20/19 [History] Fluticasone Propion/Salmeterol [Advair 250-50 Diskus] 1 each IH BID 05/20/19 [History] Ibuprofen 800 mg PO TID PRN 30 Days #90 tablet 05/24/19 [Rx] QUEtiapine [SEROquel] 50 mg PO BEDTIME 08/31/19 [History] Past Medical History - Past Health History Medical/Surgical History: Denies Medical/Surgical History HEENT History: Reports: Allergic Rhinitis, Impaired Vision Other HEENT History: wears glasses Cardiovascular History: Reports: None Respiratory History: Reports: Bronchitis, Recurrent, Sleep Apnea 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: Reports: GERD 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 History: Reports: Renal Calculus, STD [employer]ING History: Reports: Musculoskeletal History: Reports: Back Pain, Chronic, Fracture, Other (See Below) Other Musculoskeletal History: f/u ACL arthroscopic revision/L partial meniscectomy 05/24/2019 Neurological History: Reports: Concussion Psychiatric History: Reports: ADHD, Anxiety, Depression, Learning Disability, Mood Swings, Panic Attack, PTSD, Suicidal Ideation Endocrine/Metabolic History: Reports: Other (See Below) Other Endocrine/Metabolic History: calcium deficiency Hematologic History: Reports: None Immunologic History: Reports: None Oncologic (Cancer) History: Reports: None Dermatologic History: Reports: Eczema - Infectious Disease History Infectious Disease History: Reports: Chicken Pox Other Infectious Disease History: STD - Past Surgical History Head Surgeries/Procedures: Reports: None HEENT Surgical History: Reports: Other (See Below) Other HEENT Surgeries/Procedures: uvula removed 06/2018 Female Surgical History: Reports: Tubal Ligation Endocrine Surgical History: Reports: None Neurological Surgical History: Reports: None Musculoskeletal Surgical History: Reports: Other (See Below) Other Musculoskeletal Surgeries/Procedures:: knee surgery ACL repair 12/25/16 cadaver graft. left ACL revision 05/24/2019 Social & Family History - Family History Family Medical History: Noncontributory HEENT: Reports: Sinusitis Cardiac: Reports: Bypass, Heart Failure GI: Reports: GI bleed Neurological: Reports: Cerebral Aneurysms Endocrine/Metabolic: Reports: Diabetes, type II Oncologic: Reports: Breast - Tobacco Use Tobacco Use Status *Q: Current Every Day Tobacco User Years of Tobacco use: 29 Packs/Tins Daily: 0.5 - Caffeine Use Caffeine Use: Reports: Coffee, Soda - Recreational Drug Use Recreational Drug Use: Yes Recreational Drug Type: Reports: Marijuana/Hashish - Living Situation & Occupation Living situation: Reports: with Family ED ROS GENERAL - Review of Systems Review Of Systems: See Below Constitutional: Reports: No Symptoms HEENT: Reports: No Symptoms Respiratory: Reports: No Symptoms Cardiovascular: Reports: No Symptoms Endocrine: Reports: No Symptoms GI/Abdominal: Reports: No Symptoms : Reports: No Symptoms Musculoskeletal: Reports: Other (pain in lower thorax area after a fall on ic.) Skin: Reports: No Symptoms Neurological: Reports: No Symptoms ED EXAM, UPPER BACK/NECK PAIN - Physical Exam Exam: See Below Text/Narrative:: pt fell on the ice and hit her lower thorac area and caused some twisting. Exam Limited By: No Limitations General Appearance: Alert, Anxious, Moderate Distress Ears Exam: Normal TMs Nose Exam: Normal Inspection Throat/Mouth Exam: Normal Inspection Cardiovascular/Respiratory: Regular Rate, Rhythm GI/Abdominal: Soft, Non-Tender (Female) Exam: Deferred Back Exam: Vertebral Tenderness, Other (pt is tender over the lower thoracic area. She has definite spasm in the left cva area. ) Extremities: Normal Inspection Course - Vital Signs Last Recorded V/S: Last Vital Signs Temp 36.8 C 03/21/20 12:44 Pulse 79 03/21/20 12:44 Resp 16 03/21/20 12:44 BP 145/89 H 03/21/20 12:44 Pulse Ox 98 03/21/20 12:44 - Orders/Labs/Meds Meds: Medications Discontinued Medications Generic Name Dose Route Start Last Admin Trade Name Freq PRN Reason Stop Dose Admin Hydrocodone Bitart/Acetaminophen 1 tab 03/21/20 14:40 [place] 325-5 Mg PO 03/21/20 14:41 ONETIME ONE Baclofen 10 mg 03/21/20 13:09 03/21/20 13:27 Lioresal PO 03/21/20 13:10 10 mg ONETIME ONE Administration Ketorolac Tromethamine 60 mg 03/21/20 13:10 03/21/20 13:27 Toradol IM 03/21/20 13:11 60 mg ONETIME ONE Administration - Re-Assessments/Exams Free Text/Narrative Re-Assessment/Exam: 03/21/20 14:48 pt was given baclofen, norco 5/325 and torodol 60 mg. She is more comfortable. Departure - Departure Time of Disposition: 14:42 Disposition: Home, Self-Care 01 Condition: Fair Clinical Impression: Contusion of thoracic wall - Discharge Information Referrals: PCP,None [Primary Care Provider] - Forms: ED Department Discharge Care Plan Goals: ice pack to the lower thoracic area, baclofen 10 mg tid for muscle relaxation, motrin 600mg tid, continue with gabapentin, norco 5/325 q6h prn for pain. #8ino work today and tomorrow. Sepsis Event Note (ED) - Evaluation Sepsis Screening Result: No Definite Risk - Focused Exam Vital Signs: Vital Signs Temp Pulse Resp BP Pulse Ox 03/21/20 12:44 36.8 C 79 16 145/89 H 98 03/21/20 12:21 36.8 C 79 16 145/89 H 98
== END 2020-03-21 14:58 | disposition home or self-care (01) ==
LOC: JP.ED 11:44
DX: S20.229A Contusion of unspecified back wall of thorax, initial encounter (principal); K21.9 Gastro-esophageal reflux disease without esophagitis; F41.9 Anxiety disorder, unspecified; F32.9 Major depressive disorder, single episode, unspecified; F17.210 Nicotine dependence, cigarettes, uncomplicated; Z88.8 Allergy status to other drugs, medicaments and biological substances; Z88.5 Allergy status to narcotic agent; Z88.6 Allergy status to analgesic agent; Z79.899 Other long term (current) drug therapy; W19.XXXA Unspecified fall, initial encounter
CPT/HCPCS: 72070; 72110; 96372; 99283; A9270; J1885

== ENCOUNTER 2020-06-28 10:30 | Emergency (ER) | payer MEDICAID ==
[2020-06-28 11:06] VITALS: BP 136/73; PULSE 95
--- NOTE | 2020-06-28 11:26 | CR ---
Forearm 2V Lt CLINICAL HISTORY: Injury FINDINGS: There is no acute fracture within the forearm. IMPRESSION: Negative left forearm.
[2020-06-28] MEDS ORDERED: Acetaminophen/HYDROcodone 325-5 MG Tab PO ONE (11:54)
--- NOTE | 2020-06-28 11:56 | EDM.PDOC ---
ED HPI GENERAL MEDICAL PROBLEM - General Chief Complaint: Upper Extremity Injury/Pain Stated Complaint: HURT LEFT ARM Time Seen by Provider: 06/28/20 11:05 Source of Information: Reports: Patient History Limitations: Reports: No Limitations - History of Present Illness INITIAL COMMENTS - FREE TEXT/NARRATIVE: pt arrived with pain in the left forearm after hitting a closet door in an attempt to open the door. Onset: Other ( incident happened last nite. ) Duration: Hour(s): Location: Reports: Upper Extremity, Left Associated Symptoms: Reports: No Other Symptoms Left Arm Pain Score (Numeric/FACES): 7 - Related Data Allergies Allergy/AdvReac Type Severity Reaction Status Date / Time buspirone [From BuSpar] Allergy Change Verified 06/28/20 10:53 Mental Status codeine Allergy Hives Verified 06/28/20 10:53 lamotrigine [From Lamictal] Allergy Rash Verified 06/28/20 10:53 aspirin AdvReac Ringing in Verified 06/28/20 10:53 the Ears tramadol AdvReac Headache Verified 06/28/20 10:53 Home Meds: Home Meds Gabapentin [Neurontin] 900 mg PO TID 11/22/16 [History] ALPRAZolam [Alprazolam] 1 mg PO QID 03/16/18 [History] Omeprazole 20 mg PO DAILY 03/16/18 [History] Venlafaxine HCl [Venlafaxine ER] 225 mg PO DAILY 04/22/18 [History] Albuterol [Ventolin HFA] 2 puff IH Q4HR PRN 05/20/19 [History] Fluticasone Propion/Salmeterol [Advair 250-50 Diskus] 1 each IH BID PRN 05/20/19 [History] Ibuprofen 800 mg PO TID PRN 30 Days #90 tablet 05/24/19 [Rx] QUEtiapine [SEROquel] 50 mg PO BEDTIME 08/31/19 [History] QUEtiapine [SEROquel] 25 mg PO DAILY 06/28/20 [History] Past Medical History - Past Health History Medical/Surgical History: Denies Medical/Surgical History HEENT History: Reports: Allergic Rhinitis, Impaired Vision Other HEENT History: wears glasses Cardiovascular History: Reports: None Respiratory History: Reports: Bronchitis, Recurrent, Sleep Apnea 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: Reports: GERD 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 History: Reports: Renal Calculus, STD [employer] CHIEF History: Reports: Musculoskeletal History: Reports: Back Pain, Chronic, Fracture, Other (See Below) Other Musculoskeletal History: f/u ACL arthroscopic revision/L partial meniscectomy 05/24/2019 Neurological History: Reports: Concussion Psychiatric History: Reports: ADHD, Anxiety, Depression, Learning Disability, Mood Swings, Panic Attack, PTSD, Suicidal Ideation Endocrine/Metabolic History: Reports: Other (See Below) Other Endocrine/Metabolic History: calcium deficiency Hematologic History: Reports: None Immunologic History: Reports: None Oncologic (Cancer) History: Reports: None Dermatologic History: Reports: Eczema - Infectious Disease History Infectious Disease History: Reports: Chicken Pox Other Infectious Disease History: STD - Past Surgical History Head Surgeries/Procedures: Reports: None HEENT Surgical History: Reports: Other (See Below) Other HEENT Surgeries/Procedures: uvula removed 06/2018 Cardiovascular Surgical History: Reports: None Respiratory Surgical History: Reports: None GI Surgical History: Reports: None Female Surgical History: Reports: Tubal Ligation Endocrine Surgical History: Reports: None Neurological Surgical History: Reports: None Musculoskeletal Surgical History: Reports: Other (See Below) Other Musculoskeletal Surgeries/Procedures:: knee surgery ACL repair 12/25/16 cadaver graft. left ACL revision 05/24/2019 Dermatological Surgical History: Reports: None Social & Family History - Family History Family Medical History: No Pertinent Family History HEENT: Reports: Sinusitis Cardiac: Reports: Bypass, Heart Failure GI: Reports: GI bleed Neurological: Reports: Cerebral Aneurysms Endocrine/Metabolic: Reports: Diabetes, type II Oncologic: Reports: Breast - Tobacco Use Tobacco Use Status *Q: Current Every Day Tobacco User Years of Tobacco use: 30 Packs/Tins Daily: 0.5 - Caffeine Use Caffeine Use: Reports: Coffee, Soda - Recreational Drug Use Recreational Drug Use: Yes Recreational Drug Type: Reports: Marijuana/Hashish - Living Situation & Occupation Living situation: Reports: with Family Review of Systems - Review of Systems Review Of Systems: See Below Constitutional: Reports: No Symptoms Eyes: Reports: No Symptoms Ears: Reports: No Symptoms Nose: Reports: No Symptoms Mouth/Throat: Reports: No Symptoms Respiratory: Reports: No Symptoms Cardiovascular: Reports: No Symptoms GI/Abdominal: Reports: No Symptoms 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: Reports: No Symptoms Musculoskeletal: Reports: Arm Pain Neurological: Reports: No Symptoms ED EXAM, GENERAL - Physical Exam Exam: See Below Free Text/Narrative:: pt arrived with swelling in her hand and she is very tender in the dorsal fore arm Exam Limited By: No Limitations General Appearance: Alert, Anxious Extremities: Other (pt has swelling in her hand. She has removed the ring. She is very tender over the left upper forearm xray reveals no fractures. ) Neurological: Alert, Oriented, Normal Cognition Course - Vital Signs Last Recorded V/S: Last Vital Signs Temp 36.7 C 06/28/20 11:05 Pulse 95 06/28/20 11:05 Resp 17 06/28/20 11:05 BP 136/73 06/28/20 11:05 Pulse Ox 95 06/28/20 11:05 - Orders/Labs/Meds Meds: Medications Discontinued Medications Generic Name Dose Route Start Last Admin Trade Name Wilverq PRN Reason Stop Dose Admin Hydrocodone Bitart/Acetaminophen 1 tab 06/28/20 11:54 06/28/20 11:59 [place] 325-5 Mg PO 06/28/20 11:55 1 tab ONETIME ONE Administration - Re-Assessments/Exams Free Text/Narrative Re-Assessment/Exam: 06/28/20 12:10 pt hadd neg xray. She was given norco 5/325. She had a splint and zaid wrap a pplied This is for comfort and should be only used for the next 3-4 days. 07/03/20 15:37 The splint was a premade Metal splint which was appled for support Departure - Departure Time of Disposition: 11:51 Disposition: Home, Self-Care 01 Condition: Fair Clinical Impression: Contusion of left forearm, Muscle spasm of left lower extremity - Discharge Information Instructions: Muscle Cramps and Spasms, [id number], Contusion, [id number] Referrals: PCP,None [Primary Care Provider] - Forms: ED Department Discharge Care Plan Goals: use splint for the next 3-4 days. rigoorously ice the arm, elevate no lifting or pulling. baclofen 10 mg tid, torodol 10mg q6h for pain. on the 3rd or 4th day start soaking in wrm water do range of motion of the hand, Sepsis Event Note (ED) - Evaluation Sepsis Screening Result: No Definite Risk
== END 2020-06-28 12:10 | disposition home or self-care (01) ==
LOC: JP.ED 10:30
DX: S50.12XA Contusion of left forearm, initial encounter (principal); M62.838 Other muscle spasm; K21.9 Gastro-esophageal reflux disease without esophagitis; Z72.0 Tobacco use; Z79.899 Other long term (current) drug therapy; Z88.8 Allergy status to other drugs, medicaments and biological substances; Z88.5 Allergy status to narcotic agent; W22.8XXA Striking against or struck by other objects, initial encounter
CPT/HCPCS: 73090; 99283; A9270

== ENCOUNTER 2021-06-11 18:38 | Emergency (ER) | payer MEDICAID ==
[2021-06-11 19:10] VITALS: BP 137/87; PULSE 110
== END 2021-06-11 20:26 | disposition home or self-care (01) ==
LOC: JP.ED 18:38
DX: M25.522 Pain in left elbow (principal); K21.9 Gastro-esophageal reflux disease without esophagitis; F17.210 Nicotine dependence, cigarettes, uncomplicated; E66.9 Obesity, unspecified; Z68.36 Body mass index [BMI] 36.0-36.9, adult; Z88.8 Allergy status to other drugs, medicaments and biological substances; Z88.5 Allergy status to narcotic agent; Z79.899 Other long term (current) drug therapy
CPT/HCPCS: 73080-26-LT; 73080-LT; 99283-25

== ENCOUNTER 2021-12-11 19:20 | Emergency (ER) | payer MEDICAID ==
[2021-12-11] MEDS ORDERED: Ketorolac 30 MG/ML SDV IM ONE (20:51)
[2021-12-11 21:53] VITALS: BP 128/80; PULSE 108
== END 2021-12-11 23:12 | disposition home or self-care (01) ==
LOC: JP.ED 19:20
DX: N39.0 Urinary tract infection, site not specified (principal); K21.9 Gastro-esophageal reflux disease without esophagitis; F17.210 Nicotine dependence, cigarettes, uncomplicated; Z88.5 Allergy status to narcotic agent; Z88.8 Allergy status to other drugs, medicaments and biological substances
CPT/HCPCS: 74176; 81001; 81025; 87086; 87088; 87186; 96372; 99284; J1885; 99282

== ENCOUNTER 2022-01-18 08:55 | Emergency (ER) | payer MEDICAID ==
[2022-01-18 09:06] VITALS: BP 142/97; PULSE 107
[2022-01-18] MEDS ORDERED: Ondansetron 4 MG Tab.DIS PO ONE (09:33)
== END 2022-01-18 10:35 | disposition home or self-care (01) ==
LOC: JP.ED 08:55
DX: K52.1 Toxic gastroenteritis and colitis (principal); R11.2 Nausea with vomiting, unspecified; T38.3X5A Adverse effect of insulin and oral hypoglycemic [antidiabetic] drugs, initial encounter; F41.9 Anxiety disorder, unspecified; F32.A Depression, unspecified; Z88.6 Allergy status to analgesic agent; Z88.5 Allergy status to narcotic agent; Z88.7 Allergy status to serum and vaccine
CPT/HCPCS: 36415; 80048; 83690; 85025; 99284; Q0162

== ENCOUNTER 2023-01-11 13:37 | Emergency (ER) | payer MEDICAID ==
[2023-01-11 15:05] VITALS: BP 131/76; PULSE 75
[2023-01-11] MEDS ORDERED: Ketorolac 10 MG Tab PO ONE (15:37)
[2023-01-11] MEDS ORDERED: Acetaminophen 500 MG Tab PO ONE (15:37)
== END 2023-01-11 17:22 | disposition home or self-care (01) ==
LOC: JP.ED 13:37
DX: S49.91XA Unspecified injury of right shoulder and upper arm, initial encounter (principal); S59.911A Unspecified injury of right forearm, initial encounter; Z88.5 Allergy status to narcotic agent; Z88.6 Allergy status to analgesic agent; Z91.030 Bee allergy status; Z88.8 Allergy status to other drugs, medicaments and biological substances; W19.XXXA Unspecified fall, initial encounter
CPT/HCPCS: 73030; 73080; 99283; A9270

== ENCOUNTER 2023-02-05 10:06 | Day surgery (SDC) | payer MEDICAID ==
[2023-02-05 10:29] LABS: HEMATOCRIT 38.7 % (34.3-46.0); HEMOGLOBIN 13.4 g/dL (11.2-15.5); MEAN CORPUSCULAR HEMOGLOBIN 30.5 pg (31.6-35.5); MEAN CORPUSCULAR HGB CONC 34.6 g/dL (31.6-35.5); RED BLOOD CELL COUNT 4.4 M/uL (3.77-5.24); WHITE BLOOD CELL COUNT,WBC 7.8 K/uL (3.2-11.0)
[2023-02-05] MEDS ORDERED: Nozin Nasal Sanitizer NASBOTH ONE (10:30)
[2023-02-05 10:50] LABS: A/G RATIO 1.1 (1.2-2.2); ALANINE AMINOTRANSFERASE,ALT 34 U/L (12-78); ALBUMIN 4.1 g/dL (3.4-5.0); ALKALINE PHOSPHATASE 71 U/L (46-116); ASPARTATE AMNIOTRANSFERASE,AST 22 U/L (15-37); BILIRUBIN TOTAL 0.6 mg/dL (0.2-1.0); BLOOD UREA NITROGEN,BUN 20 mg/dL (7-18); CALCIUM 8.6 mg/dL (8.5-10.1); CARBON DIOXIDE,CO2 25 mmol/L (21-32); CHLORIDE,CL 102 mmol/L (100-108); CREATININE 0.8 mg/dL (0.6-1.0); EST CRCL DRUG DOSING (CG) 70.89 mL/min; ESTIMATED GFR 94 mL/min (>60); GLUCOSE RANDOM 96 mg/dL (74-106); POTASSIUM,K 3.6 mmol/L (3.6-5.2); PROTEIN TOTAL,TP 7.8 g/dL (6.4-8.2); SODIUM,NA 136 mmol/L (140-148)
[2023-02-05 11:04] LABS: ANION GAP 12.6 mmol/L (5.0-14.0)
[2023-02-05] MEDS ORDERED: Lactated Ringers 1,000 ML IV SCH (11:30)
[2023-02-05] MEDS ORDERED: ceFAZolin 2 GM in Premix Bag 1 BAG IV ONE (12:00)
[2023-02-05] MEDS ORDERED: fentaNYL 250 MCG/5 ML SDV ONE (12:20)
[2023-02-05] MEDS ORDERED: Glycopyrrolate 0.2 MG/ML 5 ML MDV ONE (12:21)
[2023-02-05] MEDS ORDERED: Ondansetron 4 MG/2 ML SDV ONE (12:21)
[2023-02-05] MEDS ORDERED: Dexamethasone 4 MG/ML SDV ONE (12:21)
[2023-02-05] MEDS ORDERED: Propofol 200 MG/20 ML SDV ONE (12:21)
[2023-02-05] MEDS ORDERED: Succinylcholine 200 MG/10 ML MDV ONE (12:49)
[2023-02-05] MEDS ORDERED: Neostigmine Methylsulfate 1 MG/ML 5 ML Syringe ONE (12:49)
[2023-02-05] MEDS ORDERED: Rocuronium 50 MG/5 ML Vial ONE (12:49)
[2023-02-05] MEDS ORDERED: Midazolam 1 MG/ML 2 ML SDV ONE (14:48)
[2023-02-05] MEDS ORDERED: Ketorolac 30 MG/ML SDV ONE (15:19)
[2023-02-05 16:34] VITALS: BP 120/52; PULSE 83
== END 2023-02-05 16:49 | disposition home or self-care (01) ==
LOC: JP.SDS 10:06
PROVIDERS: ATTEND Specialist
DX: S83.512A Sprain of anterior cruciate ligament of left knee, initial encounter (principal); M23.8X2 Other internal derangements of left knee; M94.262 Chondromalacia, left knee; M24.10 Other articular cartilage disorders, unspecified site; M25.862 Other specified joint disorders, left knee; E11.9 Type 2 diabetes mellitus without complications; F17.200 Nicotine dependence, unspecified, uncomplicated; F31.9 Bipolar disorder, unspecified; Z88.7 Allergy status to serum and vaccine; Z88.8 Allergy status to other drugs, medicaments and biological substances; Z88.6 Allergy status to analgesic agent; Z88.5 Allergy status to narcotic agent
CPT/HCPCS: 29877; 36415; 80053; 84703; 85027; A9270; J0690; J1100; J1885; J2250; J2405; J2704; J3010; J3490; J7120; J0330; J2710

== ENCOUNTER 2023-04-05 09:42 | Emergency (ER) | payer MEDICAID ==
[2023-04-05 10:16] VITALS: BP 144/87; PULSE 102
[2023-04-05] MEDS ORDERED: Dexamethasone 4 MG/ML SDV PO ONE (10:25)
== END 2023-04-05 10:50 | disposition home or self-care (01) ==
LOC: JP.ED 09:42
DX: J02.8 Acute pharyngitis due to other specified organisms (principal); E11.9 Type 2 diabetes mellitus without complications; Z79.84 Long term (current) use of oral hypoglycemic drugs; F17.210 Nicotine dependence, cigarettes, uncomplicated; Z79.899 Other long term (current) drug therapy; Z91.030 Bee allergy status; Z88.7 Allergy status to serum and vaccine; Z88.5 Allergy status to narcotic agent; Z88.6 Allergy status to analgesic agent; Z88.8 Allergy status to other drugs, medicaments and biological substances; Z86.16 Personal history of COVID-19
CPT/HCPCS: 99282; 99283; J8540

== ENCOUNTER 2023-07-02 14:12 | Emergency (ER) | payer MEDICAID ==
[2023-07-02 15:04] LABS: BASOPHILS ABSOLUTE AUTO 0.06 K/uL (0.00-0.10); BASOPHILS PERCENT AUTO 0.8 % (0.1-1.3); EOSINOPHILS ABSOLUTE AUTO 0.09 K/uL (0.00-0.40); EOSINOPHILS PERCENT AUTO 1.1 % (0.0-5.4); HEMATOCRIT 39.2 % (34.3-46.0); HEMOGLOBIN 13.5 g/dL (11.2-15.5); IMMATURE GRAN PERCENT AUTO 0.3 % (0.0-0.7); LYMPHOCYTES ABSOLUTE AUTO 2.79 K/uL (0.8-3.3); LYMPHOCYTES PERCENT AUTO 34.9 % (11.4-47.7); MEAN CORPUSCULAR HEMOGLOBIN 30.5 pg (31.6-35.5); MEAN CORPUSCULAR HGB CONC 34.4 g/dL (31.6-35.5); MEAN CORPUSCULAR VOLUME 88.5 fL (81.4-99.0); MONOCYTES ABSOLUTE AUTO 0.38 K/uL (0.20-0.90); MONOCYTES PERCENT AUTO 4.8 % (3.3-12.6); NEUTROPHILS ABSOLUTE AUTO 4.66 K/uL (1.0-7.6); NEUTROPHILS PERCENT AUTO 58.1 % (40.0-78.1); PLATELET COUNT,PLT 202 K/uL (130-375); RED BLOOD CELL COUNT 4.43 M/uL (3.77-5.24)
[2023-07-02 15:05] LABS: IMMATURE GRAN ABSOLUTE AUTO 0.02 K/uL (0.00-0.23)
[2023-07-02 15:16] LABS: CALCIUM 8.2 mg/dL (8.5-10.1); CREATININE 0.7 mg/dL (0.6-1.0); EST CRCL DRUG DOSING (CG) 81.96 mL/min; POTASSIUM,K 3.9 mmol/L (3.6-5.2)
[2023-07-02 15:25] LABS: ANION GAP 12.9 mmol/L (5.0-14.0)
[2023-07-02 15:25] LABS: APPEARANCE,URINE CLEAR (CLEAR); BILIRUBIN,URINE NEGATIVE (NEGATIVE); COLOR,URINE YELLOW (YELLOW); GLUCOSE,URINE NEGATIVE (NEGATIVE); KETONES,URINE NEGATIVE (NEGATIVE); LEUKOCYTE ESTERASE,URINE NEGATIVE (NEGATIVE); NITRITE,URINE NEGATIVE (NEGATIVE); OCCULT BLOOD,URINE NEGATIVE (NEGATIVE); PROTEIN,URINE NEGATIVE (NEGATIVE); UROBILINOGEN,URINE 0.2 EU/dL (0.2-1.0)
[2023-07-02 15:32] LABS: AMORPHOUS SEDIMENT,URINE NOT SEEN; BACTERIA,URINE RARE; EPITHELIAL CELLS,URINE FEW; MUCUS,URINE RARE; RBC,URINE 0-5 (0-5); WBC,URINE 0-5 (0-5)
[2023-07-02] MEDS: Ketorolac 15 MG/ML SDV IVPUSH ONE (15:37)
[2023-07-02] MEDS: Sodium Chloride 0.9% 1,000 ML IV ONE (15:38)
[2023-07-02 15:40] VITALS: BP 130/77; PULSE 75
== END 2023-07-02 17:43 | disposition home or self-care (01) ==
LOC: JP.ED 14:12
DX: R10.9 Unspecified abdominal pain (principal); E11.9 Type 2 diabetes mellitus without complications; F17.210 Nicotine dependence, cigarettes, uncomplicated; K21.9 Gastro-esophageal reflux disease without esophagitis; Z86.16 Personal history of COVID-19; Z79.84 Long term (current) use of oral hypoglycemic drugs; Z79.899 Other long term (current) drug therapy; Z88.6 Allergy status to analgesic agent; Z88.5 Allergy status to narcotic agent; Z88.7 Allergy status to serum and vaccine; Z91.030 Bee allergy status
CPT/HCPCS: 36415; 74176; 80048; 81001; 85025; 96361; 96374; 99284; J1885; J7030

== ENCOUNTER 2024-03-29 06:06 | Day surgery (SDC) | payer MEDICAID ==
[2024-03-29 06:30] LABS: HEMATOCRIT 39.1 % (34.3-46.0); HEMOGLOBIN 13.2 g/dL (11.2-15.5); MEAN CORPUSCULAR HEMOGLOBIN 31.4 pg (31.6-35.5); MEAN CORPUSCULAR HGB CONC 33.8 g/dL (31.6-35.5); MEAN CORPUSCULAR VOLUME 93.1 fL (81.4-99.0); RED BLOOD CELL COUNT 4.2 M/uL (3.77-5.24); WHITE BLOOD CELL COUNT,WBC 6.7 K/uL (3.2-11.0)
[2024-03-29 06:45] LABS: CALCIUM 8.7 mg/dL (8.5-10.1); CREATININE 0.8 mg/dL (0.6-1.0); EST CRCL DRUG DOSING (CG) 70.98 mL/min; POTASSIUM,K 4.1 mmol/L (3.6-5.2)
[2024-03-29 06:46] LABS: ANION GAP 13.1 mmol/L (5.0-14.0)
[2024-03-29] MEDS: Nozin Nasal Sanitizer NASBOTH ONE (06:53)
[2024-03-29] MEDS: Lactated Ringers 1,000 ML IV SCH (06:54)
[2024-03-29] MEDS ORDERED: Propofol 200 MG/20 ML SDV ONE (07:34)
[2024-03-29] MEDS ORDERED: Midazolam 1 MG/ML 2 ML SDV ONE (07:34)
[2024-03-29] MEDS ORDERED: fentaNYL 100 MCG/2 ML SDV ONE (07:34)
[2024-03-29] MEDS: ceFAZolin 1 GM in Premix Bag 1 BAG IV ONE (07:45)
[2024-03-29] MEDS: Bupivacaine 0.5% 30 ML SDV ONE (08:32)
[2024-03-29 09:19] VITALS: BP 107/67; PULSE 68
== END 2024-03-29 09:25 | disposition home or self-care (01) ==
LOC: JP.SDS 06:06
PROVIDERS: ATTEND Specialist
DX: M65.312 Trigger thumb, left thumb (principal); G47.33 Obstructive sleep apnea (adult) (pediatric); E66.9 Obesity, unspecified; E11.9 Type 2 diabetes mellitus without complications
CPT/HCPCS: 01810; 26055; 36415; 80048; 85027; A9270; J0665; J0689; J2250; J2704; J3010; J7120